=== PATIENT | male | born 1950 | race Caucasian/White ===

== ENCOUNTER 2017-10-27 13:26 | Inpatient (IN) | payer MEDICARE ==
[~2017-10-27] VITALS: Ht 182.9 cm; Wt 98.0 kg
[2017-10-27] VITALS (7 sets, daily range): BP systolic 145–207; BP diastolic 64–95; PULSE 73–94; RESP 18–25; TEMP 96.6–98.2; O2SAT 97–100
[2017-10-27] MEDS ORDERED: MICR12.5 PO (13:56)
[2017-10-27] MEDS ORDERED: ENOX120P SQ (13:56)
[2017-10-27] MEDS ORDERED: AMLO10 PO (13:56)
[2017-10-27] MEDS ORDERED: PRED20 PO (13:56)
[2017-10-27] MEDS ORDERED: PERC10TA27 PO (13:56)
--- NOTE | 2017-10-27 14:14 | PD ---
HPI Chief Complaint: Neuro Symptoms/ Deficits Time Seen by Provider: 13:39 Travel History International Travel<30 days: No Contact w/Intl Traveler<30days: No Traveled to known affect area: No History of Present Illness HPI 67-year-old man who presents to the emergency department complaining of right shoulder chest swelling ecchymosis bruising, as well as weakness, shortness of breath, concern for stroke. Patient has a history of still's disease or systemic rheumatoid arthritis as well as joints arthritis, for which she is on prednisone 40 mg daily, been on high-dose prednisone for 1 year. He has is a history of multiple ischemic strokes attributed antiphospholipid antibody syndrome. He is on Lovenox 120 mg twice a day. He apparently had an episode of spontaneous ecchymosis and hematoma in his back a month or so ago. He gets most of his care and your [place] worries from it is been in [place]. No etiology was found for that besides his Lovenox use. Today he started having spontaneous swelling and ecchymosis in his right chest wall with pain with any movement in the right arm. He's had more generalized pain to be treated to a flare of his still's disease. He also has been having several days of worsening shortness of breath and dyspnea on exertion. Although the symptoms are not similar to his previous strokes, given his history his is also worried about stroke. Bleeding History Past Medical History Narrative Medical Still's disease Multiple ischemic CVAs in the past Antiphospholipid antibody syndrome Giant cell arteritis, on high-dose steroids Hypertension Tetanus Vaccination: < 5 Years Influenza Vaccination: No Social History Alcohol Use: Yes (BEER OCCASIONALLY ) Tobacco Use: No (QUIT IN 1981) Allergies-Medications (Allergen,Severity, Reaction): Coded Allergies: No Known Allergies (Unverified , 10/27/17) Reported Meds & Prescriptions Reported Meds & Active Scripts Active Reported Percocet (Oxycodone-Acetaminophen) 10-325 mg Tab 1 Tab PO Q4H PRN Lovenox Inj (Enoxaparin Sodium) 120 Mg/0.8 Ml Syr 120 Mg SQ BID Norvasc (Amlodipine Besylate) 10 Mg Tab 10 Mg PO DAILY Microzide (Hydrochlorothiazide) 12.5 Mg Cap 12.5 Mg PO DAILY Prednisone 20 Mg Tab 40 Mg PO DAILY Take 40 mg (2 tablets) daily for 5 days Review of Systems ROS Limitations: Clinical Condition Physical Exam Narrative GENERAL: 67-year-old man, generally well-appearing, little bit confused SKIN: Focused skin assessment warm/dry. HEAD: Atraumatic. Normocephalic. EYES: Pupils equal and round. No scleral icterus. No injection or drainage. Pale conjunctiva. ENT: No nasal bleeding or discharge. Mucous membranes pink and moist. NECK: Trachea midline. No JVD. CARDIOVASCULAR: Regular rate and rhythm. No murmur appreciated. RESPIRATORY: No accessory muscle use. Clear to auscultation. Breath sounds equal bilaterally. GASTROINTESTINAL: Abdomen soft, non-tender, nondistended. Hepatic and splenic margins not palpable. MUSCULOSKELETAL: Obvious ecchymosis bruising and swelling to the right chest wall with fullness of the right pectoralis muscle, extending into the right arm some. Back exam is unremarkable. Pale conjunctiva. NEUROLOGICAL: Awake and alert. No obvious cranial nerve deficits. Patient is a little bit abnormal posture some asymmetry from the pain and swelling in the right chest. Don't see any obvious focal deficits or other suggestion of stroke. PSYCHIATRIC: Appropriate mood and affect; insight and judgment normal. Data Data Last Documented VS Vital Signs Date Time Temp Pulse Resp B/P (MAP) Pulse Ox O2 Delivery O2 Flow Rate FiO2 10/27/17 16:30 89 20 207/93 (131) 99 Room Air 10/27/17 13:45 98.2 Orders Orders Electrocardiogram (10/27/17 13:39) Complete Blood Count With Diff (10/27/17 13:39) Comprehensive Metabolic Panel (10/27/17 13:39) Prothrombin Time / Inr (Pt) (10/27/17 13:39) Act Partial Throm Time (Ptt) (10/27/17 13:39) Troponin I (10/27/17 13:39) Ct Brain W/O Iv Contrast(Rout) (10/27/17 13:39) Blood Glucose (10/27/17 13:39) Ecg Monitoring (10/27/17 13:39) Iv Access Insert/Monitor (10/27/17 13:39) Oximetry (10/27/17 13:39) Type And Screen (10/27/17 13:39) Acetamin-Hydrocod 325-5 Mg ([place] 5-325 (10/27/17 14:45) Ct Thorax/ Chest Wo Iv Contras (10/27/17 ) Admit Order (Ed Use Only) (10/27/17 ) Labs Laboratory Tests Test 10/27/17 13:55 White Blood Count 14.7 TH/MM3 Red Blood Count 2.76 MIL/MM3 Hemoglobin 8.2 GM/DL Hematocrit 24.2 % Mean Corpuscular Volume 87.6 FL Mean Corpuscular Hemoglobin 29.8 PG Mean Corpuscular Hemoglobin Concent 34.1 % Red Cell Distribution Width 15.6 % Platelet Count 178 TH/MM3 Mean Platelet Volume 7.9 FL Neutrophils (%) (Auto) 85.2 % Lymphocytes (%) (Auto) 11.1 % Monocytes (%) (Auto) 3.0 % Eosinophils (%) (Auto) 0.1 % Basophils (%) (Auto) 0.6 % Neutrophils # (Auto) 12.5 TH/MM3 Lymphocytes # (Auto) 1.6 TH/MM3 Monocytes # (Auto) 0.4 TH/MM3 Eosinophils # (Auto) 0.0 TH/MM3 Basophils # (Auto) 0.1 TH/MM3 CBC Comment AUTO DIFF Differential Total Cells Counted 100 Neutrophils % (Manual) 77 % Band Neutrophils % 7 % Lymphocytes % 8 % Monocytes % 2 % Neutrophils # (Manual) 13.2 TH/MM3 Metamyelocytes 3 % Myelocytes 3 % Differential Comment FINAL DIFF MANUAL Toxic Granulation 1+ Platelet Estimate NORMAL Platelet Morphology Comment NORMAL Prothrombin Time 13.1 SEC Prothromb Time International Ratio 1.3 RATIO Activated Partial Thromboplast Time 42.9 SEC Blood Urea Nitrogen 28 MG/DL Creatinine 2.21 MG/DL Random Glucose 244 MG/DL Total Protein 6.9 GM/DL Albumin 3.4 GM/DL Calcium Level 8.4 MG/DL Alkaline Phosphatase 119 U/L Aspartate Amino Transf (AST/SGOT) 17 U/L Alanine Aminotransferase (ALT/SGPT) 22 U/L Total Bilirubin 0.2 MG/DL Sodium Level 135 MEQ/L Potassium Level 4.2 MEQ/L Chloride Level 97 MEQ/L Carbon Dioxide Level 20.7 MEQ/L Anion Gap 17 MEQ/L Estimat Glomerular Filtration Rate 30 ML/MIN Troponin I LESS THAN 0.02 NG/ML MDM Medical Decision Making Medical Screen Exam Complete: Yes Emergency Medical Condition: Yes Interpretation(s) LABS: CBC remarkable for moderate leukocytosis, 7% bands, hemoglobin 8.2 CMP remarkable for a little bit of acidosis, BUN/creatinine 28/2.21 Troponin less than 0.[address]: Large apparent subpectoral hematoma measuring 9 x 3.7 cm. Small hypodense complement anteriorly and medially measuring 2.6 x 4.1 cm. May represent evolving blood products. No air. Since all right middle lobe nodule. Head CT: Old infarct left occipital lobe. Differential Diagnosis Spontaneous hematoma, hit, thrombocytopenia, anemia, Narrative Course Medical decision making 67-year-old man, appears have a spontaneous hematoma in his right chest. He is on 120 mg Lovenox twice daily for his thrombophilia. Is also on high-dose steroids. He looks very anemic and I think this may be the cause of his dyspnea on exertion. I don't see any stroke symptoms. What check labs, coags, CT the chest to see his size is hematoma to see if it could be the source of the bleeding or GI bleed is more likely. Likely admission. FINAL: Patient with anemia, appears to be consistent with baseline according to family. He also some renal insufficiency. He is on high doses of Lovenox, with the renal insufficiency. This could be contributing to his bleeding. His a spontaneous hematoma in the right pectoralis muscle. We'll admit for monitoring, ensure no active continued bleeding or worsening anemia. Spoke with Dr. Hyman, who will admit the patient. Diagnosis Primary Impression: Hematoma Additional Impressions: Coagulopathy Anemia Admitting Information Admitting Physician Requests: Admit Faraz Ball MD Oct 27, 2017 14:14
[2017-10-27 14:27] LABS: AUTOMATED NEUTROPHIL # 12.5 TH/MM3 (1.8-7.7); BASOPHIL # 0.1 TH/MM3 (0-0.2); BASOPHIL % 0.6 % (0.0-2.0); EOSINOPHIL % 0.1 % (0.0-4.0); HEMATOCRIT 24.2 % (39.0-51.0); HEMOGLOBIN 8.2 GM/DL (13.0-17.0); LYMPH % 11.1 % (9.0-44.0); LYMPHOCYTE # 1.6 TH/MM3 (1.0-4.8); MEAN CELL VOLUME 87.6 FL (80.0-100.0); MEAN CORPUSCULAR HEMOGLOBIN 29.8 PG (27.0-34.0); MEAN CORPUSCULAR HGB CONC 34.1 % (32.0-36.0); MEAN PLATELET VOLUME 7.9 FL (7.0-11.0); MONOCYTE # 0.4 TH/MM3 (0-0.9); NEUT % 85.2 % (16.0-70.0); PLATELET COUNT 178 TH/MM3 (150-450); RED BLOOD COUNT 2.76 MIL/MM3 (4.50-5.90); RED CELL DISTRIBUTION WIDTH 15.6 % (11.6-17.2); WHITE BLOOD COUNT 14.7 TH/MM3 (4.0-11.0)
[2017-10-27 14:34] LABS: INTERNATIONAL NORMALIZED RATIO 1.3 RATIO; PROTHROMBIN TIME - PATIENT 13.1 SEC (9.8-11.6)
[2017-10-27 14:43] LABS: ALBUMIN 3.4 GM/DL (3.4-5.0); ALT (GPT) 22 U/L (12-78); AST (GOT) 17 U/L (15-37); BICARBONATE 20.7 MEQ/L (21.0-32.0); BLOOD UREA NITROGEN 28 MG/DL (7-18); CALCIUM 8.4 MG/DL (8.5-10.1); CHLORIDE 97 MEQ/L (98-107); CREATININE 2.21 MG/DL (0.60-1.30); GLOMERULAR FILTRATION RATE 30 ML/MIN (>89); GLUCOSE,RANDOM 244 MG/DL (74-106); SODIUM (NA) 135 MEQ/L (136-145)
[2017-10-27] MEDS ORDERED: ACETAMINOPHEN/HYDROcodone 325 MG/5 MG TAB PO ONE (14:45)
[2017-10-27 14:46] LABS: ALKALINE PHOSPHATASE 119 U/L (45-117); TOTAL BILIRUBIN ADULT 0.2 MG/DL (0.2-1.0); TOTAL PROTEIN 6.9 GM/DL (6.4-8.2); TROPONIN I LESS THAN 0.02 NG/ML (0.02-0.05)
[2017-10-27 15:37] LABS: BANDS 7 % (0-6); LYMPHOCYTES 8 % (9-44); METAMYELOCYTES 3 % (0-1); MONOCYTES 2 % (0-8); MYELOCYTES 3 % (0-0); NEUTROPHIL # MANUAL DIFF 13.2 TH/MM3 (1.8-7.7); POLYS (SEG NEUTROPHILS) 77 % (16-70)
[2017-10-27 15:39] LABS: TOXIC GRANULATION 1+ (NORMAL)
--- NOTE | 2017-10-27 15:44 | RADRPT ---
EXAM DATE/TIME: 10/27/2017 15:21 [facility] COMPARISON: No previous studies available for comparison. INDICATIONS : Altered mental status. RADIATION DOSE: 56.35 CTDIvol (mGy) MEDICAL HISTORY : Cardiovascular disease. SURGICAL HISTORY : None. ENCOUNTER: Initial ACUITY: 4 - 6 days PAIN SCALE: 0/10 LOCATION: cranial TECHNIQUE: Multiple contiguous axial images were obtained of the head. Using automated exposure control and adj ustment of the mA and/or kV according to patient size, radiation dose was kept as low as reasonably a chievable to obtain optimal diagnostic quality images. DICOM format image data is available electro nically for review and comparison. FINDINGS: CEREBRUM: The ventricles are normal for age. No evidence of midline shift, mass lesion, hemorrhage or acute in farction. No extra-axial fluid collections are seen. POSTERIOR FOSSA: Brainstem intact. Encephalomalacia left occipital lobe.. The 4th ventricle is midline. The cerebell opontine angle is unremarkable. EXTRACRANIAL: The visualized portion of the orbits is intact. SKULL: The calvaria is intact. No evidence of skull fracture. CONCLUSION: 1. Old infarct left occipital lobe. 2. No acute intracranial abnormality. Moshe De Guzman MD on October 27, 2017 at 15:40 Board Certified Radiologist. This report was verified electronically.
--- NOTE | 2017-10-27 16:08 | RADRPT ---
EXAM DATE/TIME: 10/27/2017 15:25 [facility] COMPARISON: No previous studies available for comparison. INDICATIONS : Increased bruising right anterior chest. RADIATION DOSE: 18.83 CTDIvol (mGy) MEDICAL HISTORY : Cardiovascular disease. SURGICAL HISTORY : None. ENCOUNTER: Initial ACUITY: 4 - 6 days PAIN SCALE: 10/10 LOCATION: Right chest TECHNIQUE: Volumetric scanning of the chest was performed. Using automated exposure control and adjustment of t he mA and/or kV according to patient size, radiation dose was kept as low as reasonably achievable to obtain optimal diagnostic quality images. DICOM format image data is available electronically for r eview and comparison. Follow-up recommendations for detected pulmonary nodules are based at a minimum on nodule size and pa tient risk factors according to Fleischner Society Guidelines. FINDINGS: LUNGS: Mild groundglass opacities and linear parenchymal opacities in the right lung base. Minimal linear pa renchymal opacities at the left lung base. Subtle 4 mm groundglass nodule in the anterior right middl e lobe. PLEURAE: There is no pleural thickening or pleural effusion. MEDIASTINUM: Very trace pericardial effusion. Prominent coronary artery calcifications. No significant mediastinal adenopathy. CHEST WALL: Large heterogeneous probably isodense collection the pectoralis muscles. This measures 9.0 x 3.7 cm. Anteriorly and medially there is a hypodense component measuring 2.6 x 4.1 cm. There is al so prominence of the pectoralis major with associated surrounding stranding. No radiopaque foreign ranjeet dies or air in this region. MUSCULOSKELETAL: Within normal limits for patient age. MISCELLANEOUS: The visualized upper abdominal organs demonstrate no acute abnormality. CONCLUSION: 1. Large apparent subpectoral hematoma measuring 9.0 x 3.7 cm. There is a small hypodense component a nteriorly and medially measuring 2.6 x 4.1 cm. This may reflect evolving blood products. There is no air within the collection. However, superimposed infection cannot be excluded. 2. 4 mm sub-solid right middle lobe nodule. This does not require followup for 2017 Fleischner criter ia. 3. Very trace pericardial effusion. 4. Coronary artery calcifications. Femi Castillo MD on October 27, 2017 at 15:49 Board Certified Radiologist. This report was verified electronically.
[2017-10-27] MEDS ORDERED: NALOXONE HCL 0.4 MG/ML AMP IV PUSH PRN (16:45)
--- NOTE | 2017-10-27 17:42 | HHI.HP ---
HPI Service [facility] Primary Care Physician Non-Staff Admission Diagnosis hematoma, coagulopathy, anemia Diagnoses: Travel History International Travel<30 Days: No Contact w/Intl Traveler <30 Da: No Traveled to Known Affected Are: No History of Present Illness Hx from patient, ER MD, at the bedside and nursing staff from [facility] to [facility] and admitted there aug 15 admission - dc on or so [facility] that time, had back pain - hemorrhage was left retroperitoneal- no surgery had bacteremia with Staph dc on picc line was on antibiotics at home- finished 3 weeks ago - 3x a day dose, cefepime had another cx since then- but no results now still have increased abdominal pain and right shoulder pain and swelling and echymosis the pain now is also at front of the left lower quadrant, and not just left flank since , winded, slurred, cant even walk to bathroom limted rom on right arm was told to go to [place] but human resource advisor there told him to go to nearest trauma center 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 Review of Systems Except as stated in HPI: all other systems reviewed are Neg Past Family Social History Past Medical History htn DVT LLE- 2002- was treated with coumadin then on lovenox since Jun 2017 Pulmonary Embolism 2002 Antiphospholipid antibody CVA - no residual - apart from mild left eye visual problem and some left foot dragging at times Still disease - in remission - but getting worse with flare up now Temporal Arteritis Bacteremia in Aug 2017-Sep 2017 admission with Staph MSSA- likely from left elbow cyst infection that was drained at urgent care PUD Past Surgical History tonsilectomy appendectomy left rotator repair right roator and deltod abdominal hjernia riht meiscus cataratct both endosocpy and colonsocpy temrparal biospy abscess at left elbow right shoulder arthrocentesis Allergies: Coded Allergies: No Known Allergies (Unverified , 10/27/17) Family History father- cva brother - fibromyalgia Social History quit smoking 1981 no etoh no drugs has not been driving since jul 2017 Physical Exam Vital Signs Vital Signs Date Time Temp Pulse Resp B/P (MAP) Pulse Ox O2 Delivery O2 Flow Rate FiO2 10/27/17 17:30 80 20 170/78 (108) 98 Room Air 10/27/17 16:30 89 20 207/93 (131) 99 Room Air 10/27/17 15:56 20 10/27/17 13:45 97 Room Air 10/27/17 13:45 98.2 93 25 180/77 (111) 97 Room Air 10/27/17 13:45 90 25 98 Room Air 10/27/17 13:27 98.2 94 18 180/77 (111) 97 Physical Exam GENERAL: This is a well-nourished, well-developed patient, in moderate distress from pain SKIN: right upper chest echymosis all around deltoid HEAD: Atraumatic. Normocephalic. No temporal or scalp tenderness. EYES: No scleral icterus. No injection or drainage. ENT: Nose without bleeding, purulent drainage or septal hematoma. Airway patent. NECK: Trachea midline. No JVDSupple, nontender, no meningeal signs. CARDIOVASCULAR: Regular rate and rhythm without murmurs, gallops, or rubs. RESPIRATORY: Clear to auscultation. Breath sounds equal bilaterally. No wheezes , rales, or rhonchi. GASTROINTESTINAL: Abdomen soft although distended,. Pain at left side of the abdomen mostly at the upper quadrant. No guarding. Left flank pain MUSCULOSKELETAL: Extremities without clubbing, cyanosis, or edema. No calf tenderness. NEUROLOGICAL: Awake and alert. Motor and sensory grossly within normal limits.. Normal speech. Laboratory Laboratory Tests Test 10/27/17 13:55 White Blood Count 14.7 Red Blood Count 2.76 Hemoglobin 8.2 Hematocrit 24.2 Mean Corpuscular Volume 87.6 Mean Corpuscular Hemoglobin 29.8 Mean Corpuscular Hemoglobin Concent 34.1 Red Cell Distribution Width 15.6 Platelet Count 178 Mean Platelet Volume 7.9 Neutrophils (%) (Auto) 85.2 Lymphocytes (%) (Auto) 11.1 Monocytes (%) (Auto) 3.0 Eosinophils (%) (Auto) 0.1 Basophils (%) (Auto) 0.6 Neutrophils # (Auto) 12.5 Lymphocytes # (Auto) 1.6 Monocytes # (Auto) 0.4 Eosinophils # (Auto) 0.0 Basophils # (Auto) 0.1 CBC Comment AUTO DIFF Differential Total Cells Counted 100 Neutrophils % (Manual) 77 Band Neutrophils % 7 Lymphocytes % 8 Monocytes % 2 Neutrophils # (Manual) 13.2 Metamyelocytes 3 Myelocytes 3 Differential Comment FINAL DIFF MANUAL Toxic Granulation 1+ Platelet Estimate NORMAL Platelet Morphology Comment NORMAL Prothrombin Time 13.1 Prothromb Time International Ratio 1.3 Activated Partial Thromboplast Time 42.9 Blood Urea Nitrogen 28 Creatinine 2.21 Random Glucose 244 Total Protein 6.9 Albumin 3.4 Calcium Level 8.4 Alkaline Phosphatase 119 Aspartate Amino Transf (AST/SGOT) 17 Alanine Aminotransferase (ALT/SGPT) 22 Total Bilirubin 0.2 Sodium Level 135 Potassium Level 4.2 Chloride Level 97 Carbon Dioxide Level 20.7 Anion Gap 17 Estimat Glomerular Filtration Rate 30 Troponin I LESS THAN 0.02 Result Diagram: 10/27/17 1355 10/27/17 1355 Imaging Last [address] 10/27/17 1339 Signed Impressions: Service Date/Time: Friday, October 27, 2017 15:21 - CONCLUSION: 1. Old infarct left occipital lobe. 2. No acute intracranial abnormality. Moshe De Guzman MD Chest CT 10/27/17 0000 Signed Impressions: Service Date/Time: Friday, October 27, 2017 15:25 - CONCLUSION: 1. Large apparent subpectoral hematoma measuring 9.0 x 3.7 cm. There is a small hypodense component anteriorly and medially measuring 2.6 x 4.1 cm. This may reflect evolving blood products. There is no air within the collection. However, superimposed infection cannot be excluded. 2. 4 mm sub-solid right middle lobe nodule. This does not require followup for 2017 Fleischner criteria. 3. Very trace pericardial effusion. 4. Coronary artery calcifications. Femi Castillo MD Caprini VTE Risk Assessment Caprini VTE Risk Assessment: Mod/High Risk (score >= 2) Caprini Risk Assessment Model Point Value = 1 Point Value = 2 Point Value = 3 Point Value = 5 Age 41-60 Minor surgery BMI > 25 kg/m2 Swollen legs Varicose veins or History of unexplained or recurrent spontaneous Oral contraceptives or hormone replacement Sepsis (< 1 month) Serious lung disease, including pneumonia (< 1 month) Abnormal pulmonary function Acute myocardial infarction Congestive heart failure (< 1 month) History of inflammatory bowel disease Medical patient at bed rest Age 61-74 Arthroscopic surgery Major open surgery (> 45 min) Laparoscopic surgery (> 45 min) Malignancy Confined to bed (> 72 hours) Immobilizing plaster cast Central venous access Age >= 75 History of VTE Family history of VTE Factor V Leiden Prothrombin [id number] Lupus anticoagulant Anticardiolipin antibodies Elevated serum homocysteine Heparin-induced thrombocytopenia Other congenital or acquired thrombophilia Stroke (< 1 month) Elective arthroplasty Hip, pelvis, or leg fracture Acute spinal cord injury (< 1 month) Prophylaxis Regimen Total Risk Factor Score Risk Level Prophylaxis Regimen 0-1 Low Early ambulation 2 Moderate Order ONE of the following: *Sequential Compression Device (SCD) *Heparin 5000 units SQ BID 3-4 Higher Order ONE of the following medications: *Heparin 5000 units SQ TID *Enoxaparin/Lovenox 40 mg SQ daily (WT < 150 kg, CrCl > 30 mL/min) *Enoxaparin/Lovenox 30 mg SQ daily (WT < 150 kg, CrCl > 10-29 mL/min) *Enoxaparin/Lovenox 30 mg SQ BID (WT < 150 kg, CrCl > 30 mL/min) AND/OR *Sequential Compression Device (SCD) 5 or more Highest Order ONE of the following medications: *Heparin 5000 units SQ TID (Preferred with Epidurals) *Enoxaparin/Lovenox 40 mg SQ daily (WT < 150 kg, CrCl > 30 mL/min) *Enoxaparin/Lovenox 30 mg SQ daily (WT < 150 kg, CrCl > 10-29 mL/min) *Enoxaparin/Lovenox 30 mg SQ BID (WT < 150 kg, CrCl > 30 mL/min) AND *Sequential Compression Device (SCD) Assessment and Plan Assessment and Plan Impression: Large right chest hematoma Possible intra-abdominal/retroperitoneal hematoma from history and physical exam Symptomatic anemia. Secondary to acute blood loss anemia Intractable pain secondary to enlarging hematoma Leukocytosis with left shift. In a patient who had recent sepsis with MSSA bacteremia. Acute renal failure htn DVT LLE- 2002- was treated with coumadin then on lovenox since Jun 2017 Pulmonary Embolism 2002 Antiphospholipid antibody CVA - no residual - apart from mild left eye visual problem and some left foot dragging at times Still disease - in remission - but getting worse with flare up now Temporal Arteritis Bacteremia in Aug 2017-Sep 2017 admission with Staph MSSA- likely from left elbow cyst infection that was drained at urgent care PUD Plan: CT abdomen and pelvis without contrast to evaluate for hematoma. Transfuse 2 units of PRBC now. Hold 2 units. Patient is symptomatic with dizziness, inability to ambulate due to shortness of breath/dizziness. General surgery consult. Hemoglobin hematocrit serially. Pain control with Dilaudid 1 mg IV every 4 hours when necessary for pain greater than 5. Patient would likely need higher dose if not controlled. Since patient has mild leukocytosis with left shift and bandemia, although he did not have a fever, and since he had prior history of bacteremia recently, I would cover him with antibiotics. Blood cultures 2 now. UA and urine culture. Vancomycin per creatinine clearance and levels. Zosyn 4.5 g IV every 6 hours. To adjust with creatinine clearance. CT chest personally reviewed. Hydrate patient with normal saline at 100 cc per hour and blood transfusion. Patient's stated that patient's occasional he gets acute renal failure secondary to dehydration and bleeding. However his renal functions always goes back to normal and was evaluated by superintendent quarry previously for this. Hematology evaluation for high risk of clot formation in this patient who we cannot anticoagulate at this point. Question whether patient could be an IVC filter candidate. DVT prophylaxis with SCD at present. GI prophylaxis with ranitidine. Change to inpatient full admit Discussed Condition With Patient, at the bedside, ER physician Michelle Lozoya MD Oct 27, 2017 17:42
[2017-10-27] MEDS: SODIUM CHLOR 0.9% 1000 ML INJ 1,000 ML IV SCH (19:32)
[2017-10-27] MEDS: HYDROmorphone HCL PF 2 MG/ML VIAL IV PUSH PRN (19:34)
[2017-10-27] MEDS ORDERED: PIPERACIL-TAZO 4.5 GM PREMIX 100 ML IV SCH (20:00)
[2017-10-27] MEDS ORDERED: Vancomycin Consult Pharmacy 1 EA OTHER SCH (20:00)
[2017-10-27] MEDS ORDERED: cloNIDine HCL 0.1 MG TAB PO ONE (20:00)
[2017-10-27] MEDS ORDERED: ZOLP10TA3 PO (20:07)
--- NOTE | 2017-10-27 20:10 | RADRPT ---
EXAM DATE/TIME: 10/27/2017 19:35 [facility] COMPARISON: No previous studies available for comparison. INDICATIONS : Retroperitoneal/intraperitoneal hematoma ORAL CONTRAST: No oral contrast ingested. RADIATION DOSE: 12.82 CTDIvol (mGy) MEDICAL HISTORY : Cerebrovascular disease. Hypertension. SURGICAL HISTORY : Appendectomy. Hernia repair ENCOUNTER: Initial ACUITY: 1 day PAIN SCALE: 9/10 LOCATION: abdomen TECHNIQUE: Volumetric scanning of the abdomen and pelvis was performed. Using automated exposure control and ad justment of the mA and/or kV according to patient size, radiation dose was kept as low as reasonably achievable to obtain optimal diagnostic quality images. DICOM format image data is available electro nically for review and comparison. FINDINGS: Minimal basilar atelectasis. No acute findings in the liver, spleen, adrenals, kidneys or pancreas. N o calcified gallstones. There is mild constipation. Previous ventral hernia repair. Colonic diverticulosis without diverticul itis. No acute bony abnormalities. There is no retroperitoneal hematoma or free fluid. CONCLUSION: 1. Negative for free fluid or retroperitoneal hemorrhage. 2. Previous hernia repair. No acute findings within the abdomen or pelvis. Mild constipation. Boby Majano MD on October 27, 2017 at 20:06 Board Certified Radiologist. This report was verified electronically.
[2017-10-27] MEDS: SODIUM CHLORIDE 0.9% FLUSH 10 ML FLUSH IV FLUSH SCH (21:00)
[2017-10-27] MEDS ORDERED: VANCOMYCIN INJ 2,000 MG in SODIUM CHLORID 0.9% 500 ML INJ 500 ML IV ONE (21:00)
[2017-10-27 21:04] LABS: HEMATOCRIT 22.3 % (39.0-51.0); HEMOGLOBIN 7.6 GM/DL (13.0-17.0)
[2017-10-27] MEDS: FAMOTIDINE 20 MG TAB PO SCH (22:04)
[2017-10-27] MEDS: PIPERACILLIN/TAZ 3.375 GM VIAL 3.375 GM in SODIUM CHLORIDE 0.9% INJ 50 ML IV SCH (22:04)
--- NOTE | 2017-10-27 22:23 | MB ---
cc: ARIK CRAIG MD, TWETHIDA MD DATE OF CONSULTATION: 10/27/2017 REASON FOR CONSULTATION: Hematoma. BRIEF HISTORY This is a very pleasant unfortunate 67-year-old gentleman who resides in [place]. 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 He has antiphospholipid blood clotting disorder which has resulted in his strokes and he needs to be on anticoagulant medications. The patient had been hospitalized in [facility] in [place], due to a staph infection, though related to an infected cyst on the left elbow that underwent an I&D. He got bacteremic and septic and was treated with antibiotics long-term and a PICC line. The patient had been on Coumadin for DVT and pulmonary embolus in the past but was switched to Eliquis. He got a retroperitoneal hematoma on Eliquis and then was switched to subcutaneous Lovenox. He was leaving [place] to go up to [facility] where he has family and better medical care than in the [place] when he developed bruising, swelling, pain in the right chest wall, right shoulder. His called his slip injector and applicator who told he should go to the nearest trauma center which ended up being [place]. He was found to be anemic. He had CT scan which shows a large intra-pectoral hematoma and he has ecchymosis across the right chest and right upper extremity. He also complains of abdominal pain. He is long-term, been on multiple narcotic medications including Dilaudid, OxyContin and Percocet. He is now weaned down to Percocet only. He has been on multiple laxative medications and has had constipation in the past but has had bowel movements over the last five days. He has had a large ecchymotic area on the left side of the back but that is resolving. ALLERGIES: NO KNOWN DRUG ALLERGIES. PAST MEDICAL HISTORY: Significant for Still's disease, multiple ischemic strokes, anti-phospholipid antibody syndrome. He has had temporal arteritis. Hypertension. ROUTINE MEDICATIONS 1. Percocet. 2. Lovenox. 3. Norvasc. 4. Microzide. 5. Prednisone. SOCIAL HISTORY: He is a resident of [place]. I do not believe there is any significant tobacco or alcohol abuse history that is significant. PHYSICAL EXAMINATION: Well-developed, well-nourished, kind, man in no acute distress, pleasant, cooperative with exam, accompanied by his . VITAL SIGNS: Temperature 96.6, pulse 94, respiratory rate 20, blood pressure 204/95, O2 sat 99%. HEENT: Normocephalic, atraumatic. Pupils are equal, round and reactive to light. His sclerae is anicteric. His oropharynx is clear. He has got a small two tooth bridge. Mucous membranes are moist. NECK: Midline trachea, jugular venous distention. LUNGS: Lung sounds are clear. HEART: Heart sounds are regular without obvious murmurs, rubs, or gallops. He has a large ecchymotic swollen area right chest, pectoralis with ecchymosis extending into the upper right upper extremity. He has a soft, mildly protuberant abdomen that has mild tenderness to palpation. No rebound or guarding. He has two small incisional scars from hernia repair I believe at the umbilicus. /RECTAL: Not repeated. EXTREMITIES: Right upper extremity ecchymosis and some mild swelling. He has equal radial pulses. His lower extremities appear normal. No clubbing, cyanosis or edema. NEUROLOGIC: Awake, alert, oriented. He is reluctant to move the right arm due to pain. LABORATORY DATA: White count 14.7, hemoglobin 8.2, platelet count of 178, 77% neutrophils, 7% bands. INR 1.3, PTT 42.9, potassium 42. BUN 28, creatinine 2.21, albumin 3.4, negative troponin. CT of the brain shows old infarct, left occipital lobe. No acute intracranial abnormality. CT of the chest shows large subpectoral hematoma. A 4 millimeter right middle lobe nodule, trace pericardial effusion and coronary artery calcifications. CT abdomen and pelvis does not show any residual retroperitoneal hematoma. No acute intraperitoneal abnormalities evidence of prior ventral hernia repair, subcutaneous ecchymotic change in the lower chest wall, distended gallbladder without acute inflammatory changes, colon with stool and air. The bladder appears normal. Prostate appears normal. Small bilateral spermatic cord lipomas, no acute inflammatory process. No evidence of intra-abdominal or retroperitoneal bleed. Official reading pending. ASSESSMENT: The patient is a 67 year-old gentleman from [place], on his way to [place] area to see his regular physicians who has Still's disease, anti-phospholipid antibody disorder, history of DVT and pulmonary embolus, history of retroperitoneal hematoma with now with now intra-pectoral hematoma, on subcutaneous Lovenox. A very complicated patient who at this time does not require any surgical intervention. I reviewed the films on the computer with the patient's . I have recommended against any surgical intervention. The patient is going to need hematology evaluation to try and fine tune his anticoagulant therapy. Expectations for resolution of the hematoma in the chest wall over the next 2-3 months. Unless the patient became so painful he could not stand it, ought to avoid any intervention that may introduce skin bacteria to his hematoma. MD ERMA Pro/OK /8:33 PM /9:52 PM
[2017-10-28] VITALS (11 sets, daily range): BP systolic 115–190; BP diastolic 57–89; PULSE 69–98; RESP 16–20; TEMP 97.8–98.9; O2SAT 96–100
[2017-10-28] MEDS: ACETAMINOPHEN/HYDROcodone 325 MG/5 MG TAB PO PRN (00:58)
[2017-10-28] MEDS: ZOLPIDEM TARTRATE 10 MG TAB PO PRN (00:59)
[2017-10-28] MEDS: PIPERACILLIN/TAZ 3.375 GM VIAL 3.375 GM in SODIUM CHLORIDE 0.9% INJ 50 ML IV SCH ×4 (03:07→21:00)
[2017-10-28] MEDS: HYDROmorphone HCL PF 2 MG/ML VIAL IV PUSH PRN ×3 (06:37→19:09)
[2017-10-28] MEDS ORDERED: cloNIDine HCL 0.1 MG TAB PO ONE (06:45)
[2017-10-28 07:13] LABS: AUTOMATED NEUTROPHIL # 10.3 TH/MM3 (1.8-7.7); BASOPHIL # 0.1 TH/MM3 (0-0.2); BASOPHIL % 0.4 % (0.0-2.0); EOSINOPHIL % 0.2 % (0.0-4.0); HEMATOCRIT 27.6 % (39.0-51.0); HEMOGLOBIN 9.7 GM/DL (13.0-17.0); LYMPH % 20.6 % (9.0-44.0); MEAN CELL VOLUME 84.3 FL (80.0-100.0); MEAN CORPUSCULAR HEMOGLOBIN 29.7 PG (27.0-34.0); MEAN CORPUSCULAR HGB CONC 35.2 % (32.0-36.0); MEAN PLATELET VOLUME 7.7 FL (7.0-11.0); MONO % 6.8 % (0.0-8.0); PLATELET COUNT 133 TH/MM3 (150-450); RED BLOOD COUNT 3.28 MIL/MM3 (4.50-5.90); RED CELL DISTRIBUTION WIDTH 14.7 % (11.6-17.2); WHITE BLOOD COUNT 14.4 TH/MM3 (4.0-11.0)
[2017-10-28 07:36] LABS: BILIRUBIN, URINE NEG (NEG); BLOOD, URINE SMALL (NEG); GLUCOSE,URINE NEG (NEG); KETONE, URINE NEG (NEG); MUCUS URINE FEW /lpf (OCC); NITRITE,URINE NEG (NEG); URINE COLOR LIGHT-YELLOW (YELLW/STRAW); URINE LEUKOCYTE ESTERASE NEG (NEG)
[2017-10-28 08:04] LABS: CALCIUM 8.3 MG/DL (8.5-10.1); CREATININE 1.53 MG/DL (0.60-1.30)
[2017-10-28] MEDS ORDERED: POTASSIUM CHLORIDE 20 MEQ CONTROLLED RELEASE TAB PO ONE (09:00)
[2017-10-28] MEDS: FAMOTIDINE 20 MG TAB PO SCH (09:43)
[2017-10-28] MEDS: SODIUM CHLORIDE 0.9% FLUSH 10 ML FLUSH IV FLUSH SCH (09:43)
[2017-10-28] MEDS: HYDROCHLOROTHIAZIDE 12.5 MG CAP PO SCH (09:44)
[2017-10-28] MEDS: predniSONE 20 MG TAB PO SCH (09:44)
[2017-10-28] MEDS: SODIUM CHLOR 0.9% 1000 ML INJ 1,000 ML IV SCH (09:45)
[2017-10-28 10:02] LABS: BANDS 11 % (0-6); BASOPHILS 1 % (0-2); CORRECTED NUCLEATED RBC 1 /100 WBC (0-0); LYMPHOCYTES 12 % (9-44); METAMYELOCYTES 5 % (0-1); MONOCYTES 5 % (0-8); MYELOCYTES 3 % (0-0); NEUTROPHIL # MANUAL DIFF 11.7 TH/MM3 (1.8-7.7); NUCLEATED RED BLOOD CELL 1 (0-0); POLYS (SEG NEUTROPHILS) 62 % (16-70)
[2017-10-28 10:05] LABS: TOXIC GRANULATION 2+ (NORMAL)
--- NOTE | 2017-10-28 10:25 | RADRPT ---
EXAM DATE/TIME: 10/28/2017 09:24 [facility] COMPARISON: No previous studies available for comparison. INDICATIONS : Bilateral leg swelling. MEDICAL HISTORY : Hypertension. Rheumatoid arthritis. Arthritis. Right chest hematoma. CVA. Antiphospholipid disorder. Temporal arteritis. Anti coagulant therapy, Lovenox SURGICAL HISTORY : Tonsillectomy.Appendectomy. Cataracts. Hernia repair. Bilateral rotator cuff repairs. Blood transfusi ons. ENCOUNTER: Initial ACUITY: 1 day PAIN SCORE: 0/10 LOCATION: Bilateral leg. TECHNIQUE: Venous ultrasound of the left and right leg was performed from the inguinal ligament to the proximal calf. Real-time, color Doppler and spectral tracing, compression and augmentation techniques were us ed. FINDINGS: RIGHT LEG: There is normal compressibility of the deep venous system from the inguinal region to the proximal ca lf. No echogenic clot is seen in the lumen of the common femoral, femoral, popliteal, and posterior tibial veins. There is a normal response of the venous system to proximal and distal augmentation an d respiration. LEFT LEG: There is normal compressibility of the deep venous system from the inguinal region to the proximal ca lf. No echogenic clot is seen in the lumen of the common femoral, femoral, popliteal, and posterior tibial veins. There is a normal response of the venous system to proximal and distal augmentation an d respiration. CONCLUSION: Normal examination. Jayesh Cole Jr., MD on October 28, 2017 at 10:18 Board Certified Radiologist. This report was verified electronically.
[2017-10-28] MEDS: ENOXAPARIN SODIUM 60 MG/0.6 ML SYRINGE SQ SCH ×2 (11:12→23:20)
--- NOTE | 2017-10-28 11:20 | HHI.PR ---
Subjective Remarks Follow-up chest wall hematoma. Improving pain. Patient and agree with restarting anticoagulation at a lower dose. No other new complaints. Chronic intermittent chills. Objective Vitals Vital Signs Date Time Temp Pulse Resp B/P (MAP) Pulse Ox O2 Delivery O2 Flow Rate FiO2 10/28/17 08:24 98.4 69 18 115/57 (76) 99 10/28/17 07:23 18 10/28/17 05:55 98.6 98 18 190/89 98 10/28/17 04:27 97.8 77 18 162/77 (105) 96 10/28/17 04:15 98.9 78 18 149/84 100 10/28/17 04:04 98.8 18 148/76 100 10/28/17 03:05 18 10/28/17 03:05 98.8 82 18 142/86 100 10/27/17 23:21 96.7 74 20 145/64 (91) 97 10/27/17 23:04 98.2 73 18 152/82 100 10/27/17 19:24 96.6 94 20 204/95 (131) 99 10/27/17 17:30 80 20 170/78 (108) 98 Room Air 10/27/17 16:30 89 20 207/93 (131) 99 Room Air 10/27/17 15:56 20 10/27/17 13:45 97 Room Air 10/27/17 13:45 98.2 93 25 180/77 (111) 97 Room Air 10/27/17 13:45 90 25 98 Room Air 10/27/17 13:27 98.2 94 18 180/77 (111) 97 I/O 10/27/17 10/27/17 10/27/17 10/28/17 10/28/17 10/28/17 07:00 15:00 23:00 07:00 15:00 23:00 Intake Total 333 ml 3400 ml 900 ml Output Total 300 ml Balance 333 ml 3100 ml 900 ml Intake Oral 500 ml IV Total 800 ml 100 ml Packed Cells 800 ml 400 ml Blood Product IV Normal Saline Flush 333 ml 800 ml 400 ml Other 500 ml Output Urine Total 300 ml Result Diagram: 10/28/17 0635 10/28/17 0635 Imaging Last Impressions Lower Extremity Ultrasound 10/28/17 0000 Signed Impressions: Service Date/Time: October 09:24 - CONCLUSION: Normal examination. Jayesh Cole Jr., MD Abdomen/Pelvis CT 10/27/17 1922 Signed Impressions: Service Date/Time: Friday, October 27, 2017 19:35 - CONCLUSION: 1. Negative for free fluid or retroperitoneal hemorrhage. 2. Previous hernia repair. No acute findings within the abdomen or pelvis. Mild constipation. Boby Majano MD Head CT 10/27/17 1339 Signed Impressions: Service Date/Time: Friday, October 27, 2017 15:21 - CONCLUSION: 1. Old infarct left occipital lobe. 2. No acute intracranial abnormality. Moshe De Guzman MD Chest CT 10/27/17 0000 Signed Impressions: Service Date/Time: Friday, October 27, 2017 15:25 - CONCLUSION: 1. Large apparent subpectoral hematoma measuring 9.0 x 3.7 cm. There is a small hypodense component anteriorly and medially measuring 2.6 x 4.1 cm. This may reflect evolving blood products. There is no air within the collection. However, superimposed infection cannot be excluded. 2. 4 mm sub-solid right middle lobe nodule. This does not require followup for 2017 Fleischner criteria. 3. Very trace pericardial effusion. 4. Coronary artery calcifications. Femi Castillo MD Objective Remarks GENERAL: This is a well-nourished, well-developed patient, in no distress SKIN: right upper chest ecchymosis all around deltoid CARDIOVASCULAR: Regular rate and rhythm without murmurs, gallops, or rubs. RESPIRATORY: Clear to auscultation. Breath sounds equal bilaterally. No wheezes , rales, or rhonchi. GASTROINTESTINAL: Abdomen soft although distended,. No guarding. MUSCULOSKELETAL: Extremities without clubbing, cyanosis, or edema. No calf tenderness. NEUROLOGICAL: Awake and alert. Motor and sensory grossly within normal limits. Normal speech. Procedures none A/P Problem List: (1) Hematoma ICD Code: T14.8XXA - Other injury of unspecified body region, initial encounter Status: Acute (2) Coagulopathy ICD Code: D68.9 - Coagulation defect, unspecified Status: Acute Assessment and Plan Large right chest hematoma from anticoagulation. Hemodynamically stable. Status post surgery evaluation no intervention at this time. Pain management with Lortab and IV Dilaudid counseled regarding narcotics Symptomatic anemia. Secondary to acute blood loss anemia. Improved with packed RBC transfusion Leukocytosis with left shift. In a patient who had recent sepsis with MSSA bacteremia. Continue IV vancomycin and Zosyn and follow-up blood cultures. If cultures negative we'll discontinue IV vancomycin and Zosyn. Patient on steroids likely reason for leukocytosis. Patient does not have any signs and symptoms of infection exam for chronic intermittent chills Acute kidney injury. Nonoliguric. Urinalysis unremarkable. Improving on IV hydration. Avoid nephrotoxins Abdominal pain. Abdominal CT negative. This is likely secondary to constipation. Start bowel regimen htn. Improved continue home medication Hypercoagulable state with history of DVT LLE- 2002- was treated with coumadin then on lovenox since Jun 2017, Pulmonary Embolism 2002, Antiphospholipid antibody and multiple CVA - no residual - apart from mild left eye visual problem and some left foot dragging at times. Anticoagulation per hematology Still disease - in remission - but getting worse with flare up now and Temporal Arteritis. Continue prednisone PUD on Zantac Discharge Planning Discharge when cleared by hematology Ez Parada MD Oct 28, 2017 11:20
[2017-10-28] MEDS ORDERED: SENNOSIDES 8.6 MG TAB PO PRN (15:15)
[2017-10-28] MEDS ORDERED: BISACODYL 10 MG SUPP RECTAL PRN (15:15)
[2017-10-28 17:04] LABS: HEMATOCRIT 24.7 % (39.0-51.0); HEMOGLOBIN 8.6 GM/DL (13.0-17.0)
[2017-10-28] MEDS ORDERED: VANCOMYCIN INJ 2,000 MG in SODIUM CHLOR 0.9% 250 ML INJ 250 ML IV SCH (21:00)
[2017-10-28] MEDS ORDERED: VANCOMYCIN INJ 2,000 MG in SODIUM CHLORID 0.9% 500 ML INJ 500 ML IV SCH (21:00)
[2017-10-28] MEDS: PIPERACIL-TAZO 3.375 GM PREMIX 50 ML IV SCH (23:20)
[2017-10-28] MEDS: DOCUSATE SODIUM 50 MG/SENNA 8.6 MG TAB PO SCH (23:20)
[2017-10-29] VITALS (11 sets, daily range): BP systolic 125–236; BP diastolic 58–111; PULSE 73–95; RESP 16–18; TEMP 96.5–99.3; O2SAT 96–99
--- NOTE | 2017-10-29 00:01 | EKG ---
Date Performed: 10/27/2017 Time Performed: 13:33:47 PTAGE: 67 years EKG: Sinus rhythm WITH OCCASIONAL SUPRAVENTRICULAR PREMATURE COMPLEXES NONSPECIFIC ST & T-WAVE ABNORMALITY ABNORMAL EC G PREVIOUS TRACING : 10/27/2017 13.18 DOCTOR: Rene Avila Interpretating Date/Time 10/28/2017 23:59:53
[2017-10-29] MEDS: ZOLPIDEM TARTRATE 10 MG TAB PO PRN ×2 (00:51→21:19)
[2017-10-29] MEDS: SODIUM CHLOR 0.9% 1000 ML INJ 1,000 ML IV SCH ×4 (00:52→20:27)
[2017-10-29] MEDS: SODIUM CHLORIDE 0.9% FLUSH 10 ML FLUSH IV FLUSH SCH ×3 (00:52→20:27)
[2017-10-29] MEDS: ACETAMINOPHEN/HYDROcodone 325 MG/5 MG TAB PO PRN ×5 (00:52→23:43)
--- NOTE | 2017-10-29 07:11 | MB ---
cc: BILLY BERMUDEZ M.D. DATE OF CONSULTATION October 28, [address] Lozoya REASON FOR CONSULTATION Hematology is consulted to render opinion regarding a patient with antiphospholipid antibody syndrome, admitted with a hematoma. HISTORY OF PRESENT ILLNESS The patient is very pleasant 67-year-old male admitted to the hospital because of right shoulder swelling and pain. He was found to have a large hematoma. He has a very complicated medical history. History is obtained from his at the bedside. The patient was first diagnosed with left lower extremity deep venous thrombosis in 2002. At that time he also had pulmonary embolism. He was started on Coumadin. He later was found to have antiphospholipid antibody syndrome. He was doing well but in early 2016 he had multiple strokes and TIA. His stated he had a total of about eight strokes. At that time he was taking Coumadin and reportedly therapeutic. He was then switched to Eliquis. Unfortunately, in June 2017 he had another stroke while on Eliquis. He was then switched over to Lovenox 120 mg subcutaneous injection twice a day. Around August he developed significant abdominal pain. He eventually had to be transferred from [place] to [facility] in [place]. At that time he was found to have a spontaneous retroperitoneal hematoma. According to his , the patient was maintained on Lovenox because of his history of multiple strokes. He recovered from that episode. He also had a Staph infection which possibly was caused by his left elbow infected cyst. He completed antibiotic last Wednesday. He went to see his Infectious Disease doctor in [place]. Due to his complicated history and all his family is in [place], he was advised to go back to [place]. The patient's stated that the patient started having right shoulder tenderness. By Wednesday she started seeing purplish bruise on his right shoulder. They decided to leave and head up to [place] that night. When they got to the [facility] he started having more tenderness and increased warmth on the right shoulder. They called his teacher dramatics in [place] and were told to go to the nearest trauma center and he presented to the emergency room. CT scan showed a large hematoma in the subpectoral area. The patient was admitted. His anticoagulation was stopped. His last Lovenox injection was on the morning of October 27. When I saw him he just had pain medicine, is a little sleepy, but pain is better according to his . The right shoulder hematoma seems to have improved and is not as tender and hard. The patient denies any headache. He denies any visual changes. He has no speech impairment. He did lose some peripheral eyesight after his stroke in June. He denies any lower extremity edema or tenderness. PAST MEDICAL HISTORY 1. Antiphospholipid antibody syndrome. 2. Deep venous thrombosis and pulmonary embolism in 2002. 3. Multiple strokes in 2016. 4. Rheumatoid arthritis. 5. Still's disease. 6. Hypertension. 7. Temporal arteritis. 8. Bacteremia with Staph infection August 2017. 9. Peptic ulcer disease. PAST SURGICAL HISTORY 1. I&D of left elbow January 2017. 2. Tonsillectomy. 3. Appendectomy. 4. Rotator cuff surgery on the right. 5. Abdominal hernia repair. 6. Cataract surgery. 7. Colonoscopy and EGD. 8. Temporal artery biopsy. SOCIAL HISTORY Quit tobacco in 1981. Denies alcohol use. FAMILY HISTORY Father had stroke. Brother had fibromyalgia. No thromboembolic event in the family. ALLERGIES No known drug allergies. CURRENT MEDICATIONS 1. Vancomycin. 2. Mckenna-Colace. 3. Amlodipine. 4. Hydrochlorothiazide. 5. Prednisone. 6. Zosyn. 7. Famotidine. REVIEW OF SYSTEMS CONSTITUTIONAL: Negative. EYES: Negative. ENT: Negative. CARDIOVASCULAR: Denies any chest pressure, palpitations. RESPIRATORY: No shortness of breath or cough. GI: Denies any nausea, vomiting, diarrhea or abdominal pain. : Denies dysuria, hematuria. MUSCULOSKELETAL: As above. HEMATOLOGY: As above. ENDOCRINE: Negative. DERMATOLOGY: As above. NEUROLOGIC: Negative. DERMATOLOGIC: Negative. PSYCHIATRIC: Negative. PHYSICAL EXAMINATION VITALS: Temperature 98.2, blood pressure 26/59, O2 saturation 96% room air. GENERAL: He is a little sleepy after pain medication. He otherwise is oriented. HEENT: Atraumatic, normocephalic. Pupils equal, round and reactive to light. Extraocular muscles intact. No scleral icterus. Oropharynx - dry mucosa. No lesion, no thrush. NECK: No thyromegaly. No palpable mass. LYMPHATICS: No palpable cervical, clavicular, axillary or inguinal lymph nodes. CARDIOVASCULAR: Regular S1, S2. No murmur. LUNGS: Clear to auscultation anteriorly. ABDOMEN: Soft, nontender. I could not palpate the liver or spleen. EXTREMITY EXAM: No cyanosis, clubbing or edema of lower extremities. BACK: No paravertebral tenderness. SKIN: He has ecchymosis on the right shoulder, axillary and extended upper arm. LABORATORY DATA WBC of 14.4, hemoglobin 9.7, platelet count 133. Creatinine 1.53. Liver transaminase within normal limits. ASSESSMENT 1. Right chest pectoral hematoma which developed spontaneously. The patient is on Lovenox 120 mg subcu twice a day since June of 2017. He started noticing right shoulder pain on Wednesday night. It is progressively getting worse. When he presented to the emergency room, CT of the chest showed a 9 x 3.7 cm hematoma in the subpectoral area. There was also a small hypodense component anteriorly and medially that measured 2.6 x 4.1 cm. He also has a history of retroperitoneal hematoma back around August of 2017 while he was on Lovenox. At that time he was maintained on Lovenox and he did well. The patient has history of catastrophic anti-phospholipid antibody syndrome. He had a history of the lower extremity edema and pulmonary embolism in 2002 and was started on Coumadin. In November of 2016 he had a stroke and was switched to Eliquis and in June 2017 he had another stroke and was switched to Lovenox. His Lovenox was stopped when he presented to the hospital. His hematoma seems to be better. On exam the right shoulder area is softer and less tender. I have had extensive discussion with the patient and his . They are very knowledgeable about his condition. With his history of multiple strokes, he has high risk of developing recurrent stroke without anticoagulation which could be catastrophic. However, with anticoagulation there is a possibility of worsening hematoma. We discussed the pros and cons of restarting anticoagulation versus holding anticoagulation. Given his history, I think the best compromise is to start him back on Lovenox at 60 mg twice a day which may give him some protection against recurrent stroke and hopefully not extending his hematoma. He did well staying on the full dose of anticoagulation when he had retroperitoneal hematoma in August. The patient and his agree with the plan. I have told them IVC filter placement is not going to help in this situation. He has history of lower extremity DVT in 2002. On exam there is no evidence of recurrent clot. However, I am going to have him get an ultrasound of the lower extremities. If he has DVT, then we can consider IVC filter placement. If not, recommended to start him back on the Lovenox and observe him in the hospital at least overnight. If he tolerates it well, then he could be discharged and travel back to [place]. He has an appointment to see this teacher dramatics on Wednesday. 2. Recent history of spontaneous retroperitoneal hematoma while on Lovenox. He has repeat CT abdomen and pelvis which showed no residual hematoma. 3. Recent Staph bacteremia. He completed antibiotics. He has no clear evidence of infection at this time. 4. History of multiple strokes, as above. 5. Still's disease being followed by Rheumatology. He is also on prednisone. 6. History of temporal arteritis. 7. Hypertension. 8. Peptic ulcer disease. RECOMMENDATIONS 1. Extensive discussion with the patient and his . 2. Start Lovenox 60 mg twice a day. 3. Get ultrasound of lower extremities. 4. Observe him overnight to make sure he does not have worsening hematoma. 5. Monitor hemoglobin. Thank you Dr. Lozoya, for asking me to see this patient. MD ABA Cohen/JACLYN /5:12 PM /6:20 AM MIKE
[2017-10-29] MEDS: HYDROmorphone HCL PF 2 MG/ML VIAL IV PUSH PRN ×4 (07:33→20:30)
[2017-10-29 07:40] LABS: AUTOMATED NEUTROPHIL # 7.2 TH/MM3 (1.8-7.7); BASOPHIL % 0.3 % (0.0-2.0); EOSINOPHIL % 0.2 % (0.0-4.0); HEMATOCRIT 21.8 % (39.0-51.0); HEMOGLOBIN 7.7 GM/DL (13.0-17.0); LYMPH % 21.7 % (9.0-44.0); LYMPHOCYTE # 2.2 TH/MM3 (1.0-4.8); MEAN CELL VOLUME 85.5 FL (80.0-100.0); MEAN CORPUSCULAR HGB CONC 35.1 % (32.0-36.0); MONO % 7.8 % (0.0-8.0); MONOCYTE # 0.8 TH/MM3 (0-0.9); PLATELET COUNT 113 TH/MM3 (150-450); RED BLOOD COUNT 2.55 MIL/MM3 (4.50-5.90); RED CELL DISTRIBUTION WIDTH 15.6 % (11.6-17.2); WHITE BLOOD COUNT 10.3 TH/MM3 (4.0-11.0)
[2017-10-29] MEDS ORDERED: cloNIDine HCL 0.1 MG TAB PO PRN (08:30)
[2017-10-29] MEDS ORDERED: SODIUM CHLOR 0.9% 250 ML INJ 250 ML IV ONE (08:30)
[2017-10-29 08:36] LABS: BICARBONATE 27.5 MEQ/L (21.0-32.0); CALCIUM 8.3 MG/DL (8.5-10.1); CREATININE 1.52 MG/DL (0.60-1.30); MAGNESIUM 2.2 MG/DL (1.5-2.5)
[2017-10-29] MEDS: PIPERACIL-TAZO 3.375 GM PREMIX 50 ML IV SCH ×2 (09:00→14:53)
[2017-10-29 09:02] LABS: BANDS 3 % (0-6); CORRECTED NUCLEATED RBC 2 /100 WBC (0-0); LYMPHOCYTES 19 % (9-44); METAMYELOCYTES 1 % (0-1); MONOCYTES 6 % (0-8); MYELOCYTES 4 % (0-0); NEUTROPHIL # MANUAL DIFF 7.7 TH/MM3 (1.8-7.7); NUCLEATED RED BLOOD CELL 2 (0-0); POLYS (SEG NEUTROPHILS) 66 % (16-70); PROMYELOCYTES 1 % (0-0)
[2017-10-29] MEDS: DOCUSATE SODIUM 50 MG/SENNA 8.6 MG TAB PO SCH ×2 (09:37→20:26)
[2017-10-29] MEDS: predniSONE 20 MG TAB PO SCH (09:37)
[2017-10-29] MEDS: FAMOTIDINE 20 MG TAB PO SCH (09:37)
[2017-10-29] MEDS: HYDROCHLOROTHIAZIDE 12.5 MG CAP PO SCH (09:37)
--- NOTE | 2017-10-29 10:21 | RADRPT ---
EXAM DATE/TIME: 10/29/2017 09:51 [facility] COMPARISON: CT THORAX W/O CONTRAST, October 27, 2017, 15:25. INDICATIONS : Follow up hematoma. RADIATION DOSE: 18.64 CTDIvol (mGy) MEDICAL HISTORY : Cerebrovascular disease. Cardiovascular disease Hypertension. SURGICAL HISTORY : Appendectomy. ENCOUNTER: Initial ACUITY: 1 day PAIN SCALE: 10/10 LOCATION: Right chest TECHNIQUE: Volumetric scanning of the chest was performed. Using automated exposure control and adjustment of t he mA and/or kV according to patient size, radiation dose was kept as low as reasonably achievable to obtain optimal diagnostic quality images. DICOM format image data is available electronically for r eview and comparison. Follow-up recommendations for detected pulmonary nodules are based at a minimum on nodule size and pa tient risk factors according to Fleischner Society Guidelines. FINDINGS: LUNGS: Mild dependent atelectasis on the right. No significant pulmonary nodule observed on the current stud y. No acute infiltrate. PLEURAE: There is a tiny posterior layering right pleural effusion. No effusion on the left. MEDIASTINUM: The heart is normal in size. Small pericardial effusion. Significant coronary artery and aortic ather osclerotic calcifications. Pulmonary arteries are normal in caliber. No adenopathy. AXILLAE: Again seen is a large subpectoral hematoma on the right. This measures 12.1 x 11.3 x 5.6 cm which is larger from the prior exam where it measured 10.3 x 9.0 x 3.7 cm. There is a mixture of density throu ghout the hematoma largely hypoechoic relative to the adjacent pectoralis muscle. MUSCULOSKELETAL: Within normal limits for patient age. MISCELLANEOUS: The visualized upper abdominal organs demonstrate no acute abnormality. CONCLUSION: 1. Increase in size of a right subpectoral hematoma growing from 10.3 x 9.0 x 3.7 cm to 12.1 x 1.3 x 5.6 cm. 2. Tiny right effusion with dependent atelectasis. 3. Significant coronary artery atherosclerotic calcifications. Jayesh Cole Jr., MD on October 29, 2017 at 10:12 Board Certified Radiologist. This report was verified electronically.
--- NOTE | 2017-10-29 11:31 | HHI.PR ---
Subjective Remarks Follow-up chest wall hematoma. Continues to have chest wall discomfort. Also reports of headache. BP is elevated likely secondary to pain. Agrees with blood transfusion. Discussed with RN Objective Vitals Vital Signs Date Time Temp Pulse Resp B/P (MAP) Pulse Ox O2 Delivery O2 Flow Rate FiO2 10/29/17 10:15 98.3 95 18 176/81 98 10/29/17 07:23 97.0 73 18 196/86 (122) 98 10/29/17 03:18 18 10/29/17 03:17 99.3 76 16 187/81 (116) 97 10/28/17 23:51 97.8 77 16 162/74 (103) 98 10/28/17 20:19 98.8 81 16 115/58 (77) 98 10/28/17 19:30 18 10/28/17 17:55 74 10/28/17 16:10 98.2 80 19 126/59 (81) 96 10/28/17 12:00 98.9 70 20 128/60 (82) 96 I/O 10/28/17 10/28/17 10/28/17 10/29/17 10/29/17 10/29/17 07:00 15:00 23:00 07:00 15:00 23:00 Intake Total 3400 ml 900 ml 100 ml 1370 ml 10 ml Output Total 300 ml Balance 3100 ml 900 ml 100 ml 1370 ml 10 ml Intake Oral 500 ml IV Total 800 ml 100 ml 100 ml 1370 ml Packed Cells 800 ml 400 ml Blood Product IV Normal Saline Flush 800 ml 400 ml 10 ml Other 500 ml Output Urine Total 300 ml Result Diagram: 10/29/17 0608 10/29/17 0608 Imaging Last Impressions Head CT 10/29/17 0000 Signed Impressions: Service Date/Time: Sunday, October 29, 2017 11:18 - CONCLUSION: 1. Atrophy. 2. Age-indeterminate, but likely chronic, left thalamic lacunar infarction. 3. No acute intracranial abnormality. Jayesh Cole Jr., MD Chest CT 10/29/17 0000 Signed Impressions: Service Date/Time: Sunday, October 29, 2017 09:51 - CONCLUSION: 1. Increase in size of a right subpectoral hematoma growing from 10.3 x 9.0 x 3.7 cm to 12.1 x 1.3 x 5.6 cm. 2. Tiny right effusion with dependent atelectasis. 3. Significant coronary artery atherosclerotic calcifications. Jayesh Cole Jr., MD Lower Extremity Ultrasound 10/28/17 0000 Signed Impressions: Service Date/Time: October 09:24 - CONCLUSION: Normal examination. Jayesh Cole Jr., MD Abdomen/Pelvis CT 10/27/17 1922 Signed Impressions: Service Date/Time: Friday, October 27, 2017 19:35 - CONCLUSION: 1. Negative for free fluid or retroperitoneal hemorrhage. 2. Previous hernia repair. No acute findings within the abdomen or pelvis. Mild constipation. Boby Majano MD Objective Remarks GENERAL: This is a well-nourished, well-developed patient, in no distress SKIN: right upper chest ecchymosis all around deltoid CARDIOVASCULAR: Regular rate and rhythm without murmurs, gallops, or rubs. RESPIRATORY: Clear to auscultation. Breath sounds equal bilaterally. No wheezes , rales, or rhonchi. GASTROINTESTINAL: Abdomen soft although distended,. No guarding. MUSCULOSKELETAL: Extremities without clubbing, cyanosis, or edema. No calf tenderness. NEUROLOGICAL: Awake and alert. Motor and sensory grossly within normal limits. Normal speech. Procedures none A/P Problem List: (1) Hematoma ICD Code: T14.8XXA - Other injury of unspecified body region, initial encounter Status: Acute (2) Coagulopathy ICD Code: D68.9 - Coagulation defect, unspecified Status: Acute Assessment and Plan Large right chest hematoma from anticoagulation. Status post surgery evaluation no intervention at this time. Increasing hematoma on repeat CT anticoagulation discontinued at this time. Pain management with Lortab and IV Dilaudid counseled regarding narcotics Symptomatic anemia. Secondary to acute blood loss anemia. Additional unit of packed RBC being transfused keep hemoglobin at least 8. Repeat CBC tomorrow Leukocytosis with left shift. In a patient who had recent sepsis with MSSA bacteremia. Patient on steroids likely reason for leukocytosis. Patient does not have any signs and symptoms of infection except for chronic intermittent chills. Cultures negative we'll discontinue IV vancomycin and Zosyn. Acute kidney injury. Nonoliguric. Urinalysis unremarkable. Improving on IV hydration. Avoid nephrotoxins Abdominal pain. Abdominal CT negative. This is likely secondary to constipation. Start bowel regimen htn. Worse secondary to pain continue home medication with clonidine as needed VEGA with hx CVA. HCT without acute findings. Neurochecks Hypercoagulable state with history of DVT LLE- 2002- was treated with coumadin then on lovenox since Jun 2017, Pulmonary Embolism 2002, Antiphospholipid antibody and multiple CVA - no residual - apart from mild left eye visual problem and some left foot dragging at times. Anticoagulation per hematology currently on hold secondary to worsening hematoma Still disease - in remission - but getting worse with flare up now and Temporal Arteritis. Continue prednisone PUD on Zantac Discharge Planning Discharge when cleared by hematology Ez Parada MD Oct 29, 2017 11:31
--- NOTE | 2017-10-29 11:39 | RADRPT ---
EXAM DATE/TIME: 10/29/2017 11:18 [facility] COMPARISON: CT BRAIN W/O CONTRAST, October 27, 2017, 15:21. INDICATIONS : Intracerebral hemorrhage. RADIATION DOSE: 56.35 CTDIvol (mGy) MEDICAL HISTORY : Cerebrovascular disease. Cardiovascular disease Hypertension.RA,CVA SURGICAL HISTORY : Appendectomy. ENCOUNTER: Subsequent ACUITY: 2 days PAIN SCALE: 0/10 LOCATION: cranial TECHNIQUE: Multiple contiguous axial images were obtained of the head. Using automated exposure control and adj ustment of the mA and/or kV according to patient size, radiation dose was kept as low as reasonably a chievable to obtain optimal diagnostic quality images. DICOM format image data is available electro nically for review and comparison. FINDINGS: CEREBRUM: Encephalomalacia multiple left occipital lobe. 5 mm rounded low attenuation focus involving the left thalamus. It is more pronounced than on the prior study. The ventricles are normal for age. No evide nce of midline shift, mass lesion, hemorrhage or acute infarction. No extra-axial fluid collections are seen. POSTERIOR FOSSA: The cerebellum and brainstem are intact. The 4th ventricle is midline. The cerebellopontine angle i s unremarkable. EXTRACRANIAL: The visualized portion of the orbits is intact. SKULL: The calvaria is intact. No evidence of skull fracture. CONCLUSION: 1. Atrophy. 2. Age-indeterminate, but likely chronic, left thalamic lacunar infarction. 3. No acute intracranial abnormality. Jayesh Cole Jr., MD on October 29, 2017 at 11:34 Board Certified Radiologist. This report was verified electronically.
--- NOTE | 2017-10-29 11:44 | PD.ONC.PN ---
Subjective Subjective Remarks Afebrile overnight. Late entry, patient seen at Patient resting in bed. Reports pain in shoulder worsened overnight. No numbness or tingling or change in mobility in arm. No loss of feeling or weakness. Patient states he also has a bad headache. Frontal in location. Objective Data Date Time Temp Pulse Resp B/P (MAP) Pulse Ox O2 Delivery O2 Flow Rate FiO2 10/29/17 10:15 98.3 95 18 176/81 98 10/29/17 07:23 97.0 73 18 196/86 (122) 98 10/29/17 03:18 18 10/29/17 03:17 99.3 76 16 187/81 (116) 97 10/28/17 23:51 97.8 77 16 162/74 (103) 98 10/28/17 20:19 98.8 81 16 115/58 (77) 98 10/28/17 19:30 18 10/28/17 17:55 74 10/28/17 16:10 98.2 80 19 126/59 (81) 96 10/28/17 12:00 98.9 70 20 128/60 (82) 96 10/29/17 10/29/17 10/29/17 07:00 15:00 23:00 Intake Total 1370 ml 10 ml Balance 1370 ml 10 ml Result Diagram: 10/29/17 0608 10/29/17 0608 Laboratory Results Laboratory Tests Test 10/28/17 16:29 10/29/17 06:08 Hemoglobin 8.6 GM/DL 7.7 GM/DL Hematocrit 24.7 % 21.8 % White Blood Count 10.3 TH/MM3 Red Blood Count 2.55 MIL/MM3 Mean Corpuscular Volume 85.5 FL Mean Corpuscular Hemoglobin 30.0 PG Mean Corpuscular Hemoglobin Concent 35.1 % Red Cell Distribution Width 15.6 % Platelet Count 113 TH/MM3 Mean Platelet Volume 8.0 FL Neutrophils (%) (Auto) 70.0 % Lymphocytes (%) (Auto) 21.7 % Monocytes (%) (Auto) 7.8 % Eosinophils (%) (Auto) 0.2 % Basophils (%) (Auto) 0.3 % Neutrophils # (Auto) 7.2 TH/MM3 Lymphocytes # (Auto) 2.2 TH/MM3 Monocytes # (Auto) 0.8 TH/MM3 Eosinophils # (Auto) 0.0 TH/MM3 Basophils # (Auto) 0.0 TH/MM3 CBC Comment AUTO DIFF Differential Total Cells Counted 100 Neutrophils % (Manual) 66 % Band Neutrophils % 3 % Lymphocytes % 19 % Monocytes % 6 % Neutrophils # (Manual) 7.7 TH/MM3 Metamyelocytes 1 % Myelocytes 4 % Promyelocytes 1 % Nucleated Red Blood Cells 2 /100 WBC Differential Comment FINAL DIFF MANUAL Platelet Estimate LOW Platelet Morphology Comment NORMAL Polychromasia 2.0 % Blood Urea Nitrogen 23 MG/DL Creatinine 1.52 MG/DL Random Glucose 116 MG/DL Calcium Level 8.3 MG/DL Magnesium Level 2.2 MG/DL Sodium Level 138 MEQ/L Potassium Level 3.6 MEQ/L Chloride Level 103 MEQ/L Carbon Dioxide Level 27.5 MEQ/L Anion Gap 8 MEQ/L Estimat Glomerular Filtration Rate 46 ML/MIN Culture Results Microbiology Date/Time Source Procedure Growth Status 10/27/17 20:30 Blood Peripheral Aerobic Blood Culture - Preliminary NO GROWTH IN 2 DAYS Resulted 10/27/17 20:30 Blood Peripheral Anaerobic Blood Culture - Preliminary NO GROWTH IN 2 DAYS Resulted 10/27/17 20:25 Blood Peripheral Aerobic Blood Culture - Preliminary NO GROWTH IN 2 DAYS Resulted 10/27/17 20:25 Blood Peripheral Anaerobic Blood Culture - Preliminary NO GROWTH IN 2 DAYS Resulted Imaging Studies Last [address] 10/29/17 0000 Signed Impressions: Service Date/Time: Sunday, October 29, 2017 09:51 - CONCLUSION: 1. Increase in size of a right subpectoral hematoma growing from 10.3 x 9.0 x 3.7 cm to 12.1 x 1.3 x 5.6 cm. 2. Tiny right effusion with dependent atelectasis. 3. Significant coronary artery atherosclerotic calcifications. Jayesh Cole Jr., MD Administered Medications Medications (Trade) Dose Ordered Sig/Aayush Route PRN Reason Start Time Stop Time Status Last Admin Dose Admin Sodium Chloride (NS Flush) 2 ml BID IV FLUSH 10/27/17 21:00 10/29/17 00:52 Acetaminophen/ Hydrocodone Bitart ([place] 5-325 Mg) 1 tab Q4H PRN PO pain <5 10/27/17 17:00 10/29/17 09:36 Hydromorphone HCl (Dilaudid Pf Inj) 2 mg Q4H PRN IV PUSH pain >5 10/27/17 18:00 10/28/17 19:09 Sodium Chloride 1,000 ml @ 100 mls/hr Q10H IV 10/27/17 19:00 10/29/17 00:52 Amlodipine Besylate (Norvasc) 10 mg DAILY PO 10/28/17 09:00 10/29/17 09:37 Hydrochlorothiazide (Microzide) 12.5 mg DAILY PO 10/28/17 09:00 10/29/17 09:37 Prednisone (Deltasone) 40 mg DAILY PO 10/28/17 09:00 10/29/17 09:37 Zolpidem Tartrate (Ambien) 10 mg HS PRN PO INSOMNIA 10/27/17 20:45 10/29/17 00:51 Famotidine (Pepcid) 20 mg DAILY PO 10/27/17 21:00 10/29/17 09:37 Enoxaparin Sodium (Lovenox Inj) 60 mg Q12H SQ 10/28/17 11:00 Future Hold 10/28/17 23:20 Vancomycin HCl 2000 mg/Sodium Chloride 520 ml @ 250 mls/hr Q24H IV 10/28/17 21:00 10/28/17 23:19 Senna/Docusate Sodium (Mckenna-Colace) 1 tab BID PO 10/28/17 21:00 10/29/17 09:37 Piperacillin Sod/ Tazobactam Sod 50 ml @ 100 mls/hr Q6H IV 10/29/17 03:00 10/28/17 23:20 Sodium Chloride 250 ml @ 15 mls/hr ONCE ONCE IV 10/29/17 08:30 10/30/17 01:09 10/29/17 09:52 Objective Remarks GENERAL: Middle aged male, sitting up in bed in [facility]. SKIN: Warm and dry. HEAD: Normocephalic. EYES: No injection or drainage. NECK: Supple, trachea midline. CARDIOVASCULAR: Regular rate and rhythm RESPIRATORY: Breath sounds equal bilaterally. No accessory muscle use. GASTROINTESTINAL: Abdomen soft, non-tender, nondistended. EXTREMITIES: No cyanosis. right shoulder with extensive swelling extending into the right pectoralis. bruising also noted. patient able to move forearm and hand freely without inhibition. light touch sensation intact in fingertips. NEUROLOGICAL: awake and alert. normal speech. facial movements symmetric. able to move all extremities (right shoulder movement limited d/t hematoma). no obvious focal deficit. Assessment/Plan Problem List: (1) Hemarthrosis, right shoulder ICD Codes: M25.011 - Hemarthrosis, right shoulder Plan: --hold anticoagulation, keep ice on shoulder. --hematoma in the setting of h/o multiple strokes--patient with conflicting needs. History (brought forward from initial consult for continuity of care) first diagnosed with left lower extremity deep venous thrombosis in 2002. At that time he also had pulmonary embolism. He was started on Coumadin. He later was found to have antiphospholipid antibody syndrome. He was doing well but in early 2016 he had multiple strokes and TIA. His stated he had a total of about eight strokes. At that time he was taking Coumadin and reportedly therapeutic. He was then switched to Eliquis. Unfortunately, in June 2017 he had another stroke while on Eliquis. He was then switched over to Lovenox 120 mg subcutaneous injection twice a day. Around August he developed significant abdominal pain. He eventually had to be transferred from [place] to [facility] in [place]. At that time he was found to have a spontaneous retroperitoneal hematoma. According to his , the patient was maintained on Lovenox because of his history of multiple strokes. He recovered from that episode. He also had a Staph infection which possibly was caused by his left elbow infected cyst. He completed antibiotic last Wednesday. He went to see his Infectious Disease doctor in [place]. Due to his complicated history and all his family is in [place], he was advised to go back to [place]. The patient's stated that the patient started having right shoulder tenderness. By Wednesday night she started seeing purplish bruise on his right shoulder. They decided to leave and head up to [place] that night. When they got to the [facility] he started having more tenderness and increased warmth on the right shoulder. They called his hosiery pairer in [place] and were told to go to the nearest trauma center and he presented to the emergency room. CT scan showed a large hematoma in the subpectoral area. The patient was admitted. His anticoagulation was stopped. His last Lovenox injection was on the morning of October 27. Assessment 67y/o male with antiphospholipid antibody syndrome, admitted with hematoma. h/o Antiphospholipid antibody syndrome. Deep venous thrombosis and pulmonary embolism in 2003. Multiple strokes in 2017. Rheumatoid arthritis. Still's disease. Hypertension. Temporal arteritis. Bacteremia with Staph infection August 2017. Peptic ulcer disease. Plan 1. stop all anticoagulation 2. ice to shoulder 3. obtain CT brain for headache 4. transfer to floor 5. 1 unit pRBC 6. monitor H/H Attending Statement The exam, history, and the medical decision-making described in the above note were completed with the assistance of the mid-level provider. I reviewed and agree with the findings presented. I attest that I had a [id number] encounter with the patient on the same day, and personally performed and documented my assessment and findings in the medical record. Pt restarted lovenox yesterday. Hgb trended lower this morning. Repeat CT showed the hematoma is larger. Lovenox was d/c. US LE no DVT. Hopefully can restart lovenox in 1-2 days when H/H stabilize. He need to be on anticoagulation with h /o antiphospholipid antibodies. Monitor for sign of stroke. Had headached but CT head showed no acute changes. Adore Qureshi Oct 29, 2017 11:44 Emmanuel Cohen MD Oct 29, 2017 17:47
[2017-10-29 15:23] LABS: HEMATOCRIT 25.7 % (39.0-51.0); HEMOGLOBIN 8.8 GM/DL (13.0-17.0)
[2017-10-29 15:30] LABS: INTERNATIONAL NORMALIZED RATIO 1.1 RATIO; PROTHROMBIN TIME - PATIENT 11.4 SEC (9.8-11.6)
[2017-10-30] VITALS (17 sets, daily range): BP systolic 151–174; BP diastolic 67–82; PULSE 52–111; RESP 16–20; TEMP 96.3–98.6; O2SAT 95–99
[2017-10-30] MEDS: HYDROmorphone HCL PF 2 MG/ML VIAL IV PUSH PRN ×5 (00:49→23:42)
[2017-10-30] MEDS: ACETAMINOPHEN/HYDROcodone 325 MG/5 MG TAB PO PRN ×4 (03:37→22:17)
[2017-10-30] MEDS: SODIUM CHLOR 0.9% 1000 ML INJ 1,000 ML IV SCH ×2 (05:43→15:23)
[2017-10-30 08:27] LABS: AUTOMATED NEUTROPHIL # 8.7 TH/MM3 (1.8-7.7); BASOPHIL % 0.4 % (0.0-2.0); EOSINOPHIL % 0.3 % (0.0-4.0); HEMATOCRIT 26.7 % (39.0-51.0); HEMOGLOBIN 9.2 GM/DL (13.0-17.0); LYMPH % 26.6 % (9.0-44.0); LYMPHOCYTE # 3.6 TH/MM3 (1.0-4.8); MEAN CELL VOLUME 85.8 FL (80.0-100.0); MEAN CORPUSCULAR HEMOGLOBIN 29.5 PG (27.0-34.0); MEAN CORPUSCULAR HGB CONC 34.3 % (32.0-36.0); MEAN PLATELET VOLUME 7.8 FL (7.0-11.0); MONO % 7.4 % (0.0-8.0); NEUT % 65.3 % (16.0-70.0); PLATELET COUNT 116 TH/MM3 (150-450); RED BLOOD COUNT 3.11 MIL/MM3 (4.50-5.90); RED CELL DISTRIBUTION WIDTH 15.4 % (11.6-17.2); WHITE BLOOD COUNT 13.4 TH/MM3 (4.0-11.0)
[2017-10-30 08:39] LABS: BICARBONATE 24.2 MEQ/L (21.0-32.0); CALCIUM 8.8 MG/DL (8.5-10.1); CREATININE 1.44 MG/DL (0.60-1.30); MAGNESIUM 2.3 MG/DL (1.5-2.5)
[2017-10-30] MEDS: SODIUM CHLORIDE 0.9% FLUSH 10 ML FLUSH IV FLUSH SCH ×2 (09:00→21:00)
[2017-10-30 09:21] LABS: BANDS 3 % (0-6); CORRECTED NUCLEATED RBC 2 /100 WBC (0-0); LYMPHOCYTES 14 % (9-44); METAMYELOCYTES 3 % (0-1); MONOCYTES 3 % (0-8); NUCLEATED RED BLOOD CELL 2 (0-0); POLYS (SEG NEUTROPHILS) 76 % (16-70)
[2017-10-30 09:22] LABS: TOXIC GRANULATION 2+ (NORMAL)
[2017-10-30] MEDS: predniSONE 20 MG TAB PO SCH (09:33)
[2017-10-30] MEDS: DOCUSATE SODIUM 50 MG/SENNA 8.6 MG TAB PO SCH ×2 (09:33→21:00)
[2017-10-30] MEDS: FAMOTIDINE 20 MG TAB PO SCH (09:33)
[2017-10-30] MEDS: HYDROCHLOROTHIAZIDE 12.5 MG CAP PO SCH (09:34)
[2017-10-30] MEDS: LACTULOSE SYRUP 20 GM/30 ML CUP PO PRN (10:08)
[2017-10-30] MEDS ORDERED: ACETAMIN 325 MG/BUTALBITAL 50 MG/CAFFEINE 40 MG TAB PO ONE (12:00)
--- NOTE | 2017-10-30 14:47 | HHI.PR ---
Subjective Remarks To headache today. No focal neuro deficits. He also complains of fatigue which has been present for months. We discussed possibility of anemia contributing to his fatigue, however there is no outpatient blood draws to verify this. Also he could have vitamin deficiencies or hypothyroidism so further screening will be performed. Objective Vital Signs Date Time Temp Pulse Resp B/P (MAP) Pulse Ox O2 Delivery O2 Flow Rate FiO2 10/30/17 14:08 52 10/30/17 12:58 111 10/30/17 12:00 97.2 103 18 161/70 (100) 97 10/30/17 11:57 60 10/30/17 08:00 81 10/30/17 04:15 78 10/30/17 03:49 98.6 80 16 171/76 (107) 97 10/30/17 00:20 82 10/30/17 00:00 97.9 87 17 151/67 (95) 98 10/29/17 20:00 97.7 81 16 131/61 (84) 99 10/29/17 20:00 77 10/29/17 18:29 77 10/29/17 16:00 96.5 79 16 125/58 (80) 96 I/O 10/29/17 10/29/17 10/29/17 10/30/17 10/30/17 10/30/17 07:00 15:00 23:00 07:00 15:00 23:00 Intake Total 1370 ml 420 ml 1203 ml 1395 ml 734 ml Balance 1370 ml 420 ml 1203 ml 1395 ml 734 ml Intake Oral 720 ml 480 ml IV Total 1370 ml 483 ml 915 ml 734 ml Packed Cells 400 ml Blood Product IV Normal Saline Flush 20 ml # Voids 1 1 Result Diagram: 10/30/17 0734 10/30/17 0734 Objective Remarks GENERAL: NAD, A&Ox3 HEAD: Normocephalic. NECK: Supple, trachea midline. No lymphadenopathy. EYES: No scleral icterus. No injection or drainage. CARDIOVASCULAR: Regular rate and rhythm without murmurs, gallops, or rubs. RESPIRATORY: Breath sounds equal bilaterally. No accessory muscle use. GASTROINTESTINAL: Abdomen soft, non-tender, nondistended. MUSCULOSKELETAL: No cyanosis, or edema. Right lateral pectoralis and axillary areas have palpable areas of induration/hematoma. SKIN: Warm and dry. Bruising extends beyond palpable area of hematoma. NEURO: No focal neurological deficitis. A/P Problem List: (1) Hemarthrosis, right shoulder ICD Code: M25.011 - Hemarthrosis, right shoulder (2) Hematoma ICD Code: T14.8XXA - Other injury of unspecified body region, initial encounter Status: Acute (3) Coagulopathy ICD Code: D68.9 - Coagulation defect, unspecified Status: Acute (4) Anemia ICD Code: D64.9 - Anemia, unspecified Status: Acute Assessment and Plan 67-year-old male admitted secondary to spontaneous right chest/axilla hematoma. Large right chest hematoma Chronic hypercoagulopathy Antiphospholipid antibody syndrome History of pulmonary embolism Numerous histories of CVA Related to anticoagulation, patient needs chronic anticoagulation due to hypercoagulopathy Continue to monitor CBC Hematology following Potential plan for resumption of Lovenox tomorrow Symptomatic anemia Secondary to acute blood loss Improving Continue to monitor CBC Transfuse again if needed Acute kidney injury Follow renal function Avoid nephrotoxins Improved with IV hydration Hypertension Continue clonidine as needed Continue baseline treatment Follow blood pressures Headache No clinical evidence of acute CVA Current headaches do not match his history of temporal arteritis Etiology for the headache may be referred pain from disturbance of the brachial plexus secondary to hematoma Still disease History of temporal arteritis Continue prednisone Peptic ulcer disease Continue Zantac Fatigue Check B12, vitamin D, thyroid panel, ferritin, TIBC, and iron levels Discharge Planning Plan to resume Lovenox and monitor for recurrence of bleed, if patient is stable after this measure, discharge will be considered when hematology clears patient. Edil Garcia MD Oct 30, 2017 14:47
[2017-10-30 16:36] LABS: IRON (FE) 38 MCG/DL (65-175); THYROXINE (T4) 4.8 MCG/DL (4.5-12.1)
[2017-10-30 17:01] LABS: % SATURATION IRON PROFILE 13.9 % (20-50); FERRITIN 361 NG/ML (26-388); FREE T3 1.83 PG/ML (2.18-3.98); TOTAL IRON BINDING CAPACITY 273 MCG/DL (250-450)
--- NOTE | 2017-10-30 19:55 | PD.ONC.PN ---
Subjective Subjective Remarks Afebrile Pt resting in bed in no obvious distress Pain in shoulder improving Objective Data Date Time Temp Pulse Resp B/P (MAP) Pulse Ox O2 Delivery O2 Flow Rate FiO2 10/30/17 18:06 85 10/30/17 17:13 68 10/30/17 16:22 68 10/30/17 15:57 96.8 88 18 156/72 (100) 99 10/30/17 14:41 83 10/30/17 14:08 52 10/30/17 12:58 111 10/30/17 12:00 97.2 103 18 161/70 (100) 97 10/30/17 11:57 60 10/30/17 08:00 81 10/30/17 08:00 96.8 82 16 174/70 (104) 96 10/30/17 04:15 78 10/30/17 03:49 98.6 80 16 171/76 (107) 97 10/30/17 00:20 82 10/30/17 00:00 97.9 87 17 151/67 (95) 98 10/29/17 20:00 97.7 81 16 131/61 (84) 99 10/29/17 20:00 77 10/30/17 10/30/17 10/30/17 07:00 15:00 23:00 Intake Total 1395 ml 734 ml 960 ml Balance 1395 ml 734 ml 960 ml Result Diagram: 10/30/17 0734 10/30/17 0734 Laboratory Results Laboratory Tests Test 10/30/17 07:34 White Blood Count 13.4 TH/MM3 Red Blood Count 3.11 MIL/MM3 Hemoglobin 9.2 GM/DL Hematocrit 26.7 % Mean Corpuscular Volume 85.8 FL Mean Corpuscular Hemoglobin 29.5 PG Mean Corpuscular Hemoglobin Concent 34.3 % Red Cell Distribution Width 15.4 % Platelet Count 116 TH/MM3 Mean Platelet Volume 7.8 FL Neutrophils (%) (Auto) 65.3 % Lymphocytes (%) (Auto) 26.6 % Monocytes (%) (Auto) 7.4 % Eosinophils (%) (Auto) 0.3 % Basophils (%) (Auto) 0.4 % Neutrophils # (Auto) 8.7 TH/MM3 Lymphocytes # (Auto) 3.6 TH/MM3 Monocytes # (Auto) 1.0 TH/MM3 Eosinophils # (Auto) 0.0 TH/MM3 Basophils # (Auto) 0.0 TH/MM3 CBC Comment AUTO DIFF Differential Total Cells Counted 100 Neutrophils % (Manual) 76 % Band Neutrophils % 3 % Lymphocytes % 14 % Monocytes % 3 % Eosinophils % 1 % Neutrophils # (Manual) 11.0 TH/MM3 Metamyelocytes 3 % Nucleated Red Blood Cells 2 /100 WBC Differential Comment FINAL DIFF MANUAL Toxic Granulation 2+ Platelet Estimate LOW Platelet Morphology Comment NORMAL Polychromasia 2.0 % Blood Urea Nitrogen 18 MG/DL Creatinine 1.44 MG/DL Random Glucose 105 MG/DL Calcium Level 8.8 MG/DL Magnesium Level 2.3 MG/DL Sodium Level 137 MEQ/L Potassium Level 3.7 MEQ/L Chloride Level 102 MEQ/L Carbon Dioxide Level 24.2 MEQ/L Anion Gap 11 MEQ/L Estimat Glomerular Filtration Rate 49 ML/MIN Iron Level 38 MCG/DL Total Iron Binding Capacity 273 MCG/DL Percent Iron Saturation 13.9 % Ferritin 361 NG/ML Vitamin B12 Level 258 PG/ML Thyroxine (T4) 4.8 MCG/DL Free Triiodothyronine (T3) pg/dL 1.83 PG/ML Thyroid Stimulating Hormone 3rd Gen 2.800 uIU/ML Culture Results Microbiology Date/Time Source Procedure Growth Status 10/27/17 20:30 Blood Peripheral Aerobic Blood Culture - Preliminary NO GROWTH IN 3 DAYS Resulted 10/27/17 20:30 Blood Peripheral Anaerobic Blood Culture - Preliminary NO GROWTH IN 3 DAYS Resulted 10/27/17 20:25 Blood Peripheral Aerobic Blood Culture - Preliminary NO GROWTH IN 3 DAYS Resulted 10/27/17 20:25 Blood Peripheral Anaerobic Blood Culture - Preliminary NO GROWTH IN 3 DAYS Resulted Administered Medications Medications (Trade) Dose Ordered Sig/Aayush Route PRN Reason Start Time Stop Time Status Last Admin Dose Admin Sodium Chloride (NS Flush) 2 ml BID IV FLUSH 10/27/17 21:00 10/29/17 00:52 Acetaminophen/ Hydrocodone Bitart ([place] 5-325 Mg) 1 tab Q4H PRN PO pain <5 10/27/17 17:00 10/30/17 16:56 Hydromorphone HCl (Dilaudid Pf Inj) 2 mg Q4H PRN IV PUSH pain >5 10/27/17 18:00 10/30/17 15:23 Sodium Chloride 1,000 ml @ 100 mls/hr Q10H IV 10/27/17 19:00 10/30/17 15:23 Amlodipine Besylate (Norvasc) 10 mg DAILY PO 10/28/17 09:00 10/30/17 09:34 Hydrochlorothiazide (Microzide) 12.5 mg DAILY PO 10/28/17 09:00 10/30/17 09:34 Prednisone (Deltasone) 40 mg DAILY PO 10/28/17 09:00 10/30/17 09:33 Zolpidem Tartrate (Ambien) 10 mg HS PRN PO INSOMNIA 10/27/17 20:45 10/29/17 21:19 Famotidine (Pepcid) 20 mg DAILY PO 10/27/17 21:00 10/30/17 09:33 Enoxaparin Sodium (Lovenox Inj) 60 mg Q12H SQ 10/28/17 11:00 Future Hold 10/28/17 23:20 Senna/Docusate Sodium (Mckenna-Colace) 1 tab BID PO 10/28/17 21:00 10/30/17 09:33 Lactulose (Lactulose Liq) 30 ml DAILY PRN PO SEVERE CONSITIPATION 10/28/17 15:15 10/30/17 10:08 Objective Remarks GENERAL: Older male, resting in bed in no obvious distress. SKIN: Warm and dry. Massive hematoma to R shoulder that extends down R flank. HEAD: Normocephalic. EYES: No injection or drainage. NECK: Supple, trachea midline. CARDIOVASCULAR: +S1/S2. No murmur noted. RESPIRATORY: Clear anteriorly. Breathing unlabored. GASTROINTESTINAL: Abdomen soft, non-tender, nondistended. EXTREMITIES: No cyanosis, or edema. MUSCULOSKELETAL: Adequate muscle tone. NEUROLOGICAL: No obvious focal deficit. Awake, alert, and oriented x3. Assessment/Plan Assessment 67y/o male with antiphospholipid antibody syndrome, admitted with hematoma. h/o Antiphospholipid antibody syndrome. Deep venous thrombosis and pulmonary embolism in 2003. Multiple strokes in 2017. Plan 1. CBC stable. 2. Will resume Lovenox in am at 60mg BID if no further bleed. Attending Statement The exam, history, and the medical decision-making described in the above note were completed with the assistance of the mid-level provider. I reviewed and agree with the findings presented. I attest that I had a [id number] encounter with the patient on the same day, and personally performed and documented my assessment and findings in the medical record. no further bleeding. GRR 49 ml. this may contribute to a higher level of lovenox. Spoke with Dr. Cohen and will resume Lovenox tomorrow at 60 mg sub cut q 12 hours and observe. He may be able to get away with a dose lower then 1 mg/Kg q 12 hours. he has had two major soft tissue bleeds on a dose of 120 mg of Lovenox every 12 hours. Mariama Silvestre Oct 30, 2017 19:55 Chris Grande MD Oct 30, 2017 20:00
[2017-10-30] MEDS ORDERED: PHARMACY ORDERED LAB ONE (20:45)
[2017-10-30] MEDS: ZOLPIDEM TARTRATE 10 MG TAB PO PRN (22:26)
[2017-10-31] VITALS (20 sets, daily range): BP systolic 110–182; BP diastolic 50–78; PULSE 60–98; RESP 16–20; TEMP 96.7–98.7; O2SAT 94–99
[2017-10-31] MEDS: ENALAPRILAT 1.25 MG/ML VIAL IV PUSH PRN (01:35)
[2017-10-31] MEDS: SODIUM CHLORIDE 0.9% FLUSH 10 ML FLUSH IV FLUSH PRN ×2 (01:35→06:25)
[2017-10-31] MEDS: ACETAMINOPHEN/HYDROcodone 325 MG/5 MG TAB PO PRN ×5 (03:32→21:31)
[2017-10-31] MEDS: SODIUM CHLOR 0.9% 1000 ML INJ 1,000 ML IV SCH ×3 (03:33→20:59)
[2017-10-31] MEDS: HYDROmorphone HCL PF 2 MG/ML VIAL IV PUSH PRN ×4 (06:25→20:02)
[2017-10-31] MEDS: cloNIDine HCL 0.1 MG TAB PO PRN (06:34)
[2017-10-31 07:28] LABS: BASOPHIL % 0.3 % (0.0-2.0); EOSINOPHIL % 0.3 % (0.0-4.0); HEMATOCRIT 23.6 % (39.0-51.0); HEMOGLOBIN 8.1 GM/DL (13.0-17.0); LYMPHOCYTE # 1.7 TH/MM3 (1.0-4.8); MEAN CELL VOLUME 86.1 FL (80.0-100.0); MEAN CORPUSCULAR HEMOGLOBIN 29.7 PG (27.0-34.0); MEAN CORPUSCULAR HGB CONC 34.4 % (32.0-36.0); MEAN PLATELET VOLUME 7.7 FL (7.0-11.0); MONO % 9.2 % (0.0-8.0); MONOCYTE # 0.9 TH/MM3 (0-0.9); NEUT % 72.2 % (16.0-70.0); PLATELET COUNT 77 TH/MM3 (150-450); RED BLOOD COUNT 2.74 MIL/MM3 (4.50-5.90); RED CELL DISTRIBUTION WIDTH 15.3 % (11.6-17.2); WHITE BLOOD COUNT 9.6 TH/MM3 (4.0-11.0)
[2017-10-31 07:49] LABS: ALBUMIN 2.7 GM/DL (3.4-5.0); AST (GOT) 14 U/L (15-37); BICARBONATE 25.6 MEQ/L (21.0-32.0); BLOOD UREA NITROGEN 17 MG/DL (7-18); CALCIUM 8.3 MG/DL (8.5-10.1); CHLORIDE 105 MEQ/L (98-107); CREATININE 1.27 MG/DL (0.60-1.30); GLOMERULAR FILTRATION RATE 57 ML/MIN (>89); GLUCOSE,RANDOM 112 MG/DL (74-106); SODIUM (NA) 139 MEQ/L (136-145)
[2017-10-31 07:54] LABS: ALKALINE PHOSPHATASE 97 U/L (45-117); ALT (GPT) 23 U/L (12-78); TOTAL BILIRUBIN ADULT 0.5 MG/DL (0.2-1.0); TOTAL PROTEIN 5.9 GM/DL (6.4-8.2)
[2017-10-31] MEDS: predniSONE 20 MG TAB PO SCH (08:36)
[2017-10-31] MEDS: HYDROCHLOROTHIAZIDE 12.5 MG CAP PO SCH (08:36)
[2017-10-31] MEDS: DOCUSATE SODIUM 50 MG/SENNA 8.6 MG TAB PO SCH ×2 (08:36→20:03)
[2017-10-31] MEDS: FAMOTIDINE 20 MG TAB PO SCH (08:36)
[2017-10-31] MEDS: SODIUM CHLORIDE 0.9% FLUSH 10 ML FLUSH IV FLUSH SCH ×2 (08:38→20:05)
[2017-10-31 08:57] LABS: BANDS 1 % (0-6); LYMPHOCYTES 23 % (9-44); MONOCYTES 7 % (0-8); MYELOCYTES 3 % (0-0); NEUTROPHIL # MANUAL DIFF 6.7 TH/MM3 (1.8-7.7); POLYS (SEG NEUTROPHILS) 66 % (16-70)
[2017-10-31] MEDS ORDERED: SODIUM CHLOR 0.9% 250 ML INJ 250 ML IV ONE (13:15)
[2017-10-31] MEDS ORDERED: ACETAMINOPHEN 325 MG TAB PO PRN (13:15)
[2017-10-31] MEDS ORDERED: diphenhydrAMINE HCL 25 MG CAP PO PRN (13:15)
--- NOTE | 2017-10-31 13:23 | PD.ONC.PN ---
Subjective Subjective Remarks Afebrile C/o L temporal headache No bleeding noted Objective Data Date Time Temp Pulse Resp B/P (MAP) Pulse Ox O2 Delivery O2 Flow Rate FiO2 10/31/17 12:37 76 10/31/17 12:15 97.3 75 17 140/67 (91) 95 10/31/17 11:55 87 10/31/17 09:54 88 10/31/17 08:00 98.2 80 16 149/68 (95) 94 10/31/17 07:47 83 10/31/17 03:45 98.7 78 18 178/73 (108) 97 10/31/17 00:15 98.0 90 16 182/74 (110) 95 10/30/17 23:47 96 10/30/17 19:44 85 10/30/17 19:15 96.3 83 20 172/82 (112) 95 10/30/17 18:06 85 10/30/17 17:13 68 10/30/17 16:22 68 10/30/17 15:57 96.8 88 18 156/72 (100) 99 10/30/17 14:41 83 10/30/17 14:08 52 10/31/17 10/31/17 10/31/17 07:00 15:00 23:00 Intake Total 2012 ml 409 ml Balance 2012 ml 409 ml Result Diagram: 10/31/1763210/31/1733 Laboratory Results Laboratory Tests Test 10/31/17 06:33 10/31/17 12:15 White Blood Count 9.6 TH/MM3 Red Blood Count 2.74 MIL/MM3 Hemoglobin 8.1 GM/DL Hematocrit 23.6 % Mean Corpuscular Volume 86.1 FL Mean Corpuscular Hemoglobin 29.7 PG Mean Corpuscular Hemoglobin Concent 34.4 % Red Cell Distribution Width 15.3 % Platelet Count 77 TH/MM3 Mean Platelet Volume 7.7 FL Neutrophils (%) (Auto) 72.2 % Lymphocytes (%) (Auto) 18.0 % Monocytes (%) (Auto) 9.2 % Eosinophils (%) (Auto) 0.3 % Basophils (%) (Auto) 0.3 % Neutrophils # (Auto) 7.0 TH/MM3 Lymphocytes # (Auto) 1.7 TH/MM3 Monocytes # (Auto) 0.9 TH/MM3 Eosinophils # (Auto) 0.0 TH/MM3 Basophils # (Auto) 0.0 TH/MM3 CBC Comment AUTO DIFF Differential Total Cells Counted 100 Neutrophils % (Manual) 66 % Band Neutrophils % 1 % Lymphocytes % 23 % Monocytes % 7 % Neutrophils # (Manual) 6.7 TH/MM3 Myelocytes 3 % Differential Comment FINAL DIFF MANUAL Platelet Estimate LOW Platelet Morphology Comment NORMAL Blood Urea Nitrogen 17 MG/DL Creatinine 1.27 MG/DL Random Glucose 112 MG/DL Total Protein 5.9 GM/DL Albumin 2.7 GM/DL Calcium Level 8.3 MG/DL Alkaline Phosphatase 97 U/L Aspartate Amino Transf (AST/SGOT) 14 U/L Alanine Aminotransferase (ALT/SGPT) 23 U/L Total Bilirubin 0.5 MG/DL Sodium Level 139 MEQ/L Potassium Level 3.4 MEQ/L Chloride Level 105 MEQ/L Carbon Dioxide Level 25.6 MEQ/L Anion Gap 8 MEQ/L Estimat Glomerular Filtration Rate 57 ML/MIN Random Cortisol 3.0 MCG/DL Erythrocyte Sedimentation Rate 82 mm/hr C-Reactive Protein 7.34 MG/DL Administered Medications Medications (Trade) Dose Ordered Sig/Aayush Route PRN Reason Start Time Stop Time Status Last Admin Dose Admin Sodium Chloride (NS Flush) 2 ml UNSCH PRN IV FLUSH FLUSH AFTER USING IV ACCESS 10/27/17 16:45 10/31/17 06:25 Sodium Chloride (NS Flush) 2 ml BID IV FLUSH 10/27/17 21:00 10/29/17 00:52 Acetaminophen/ Hydrocodone Bitart ([place] 5-325 Mg) 1 tab Q4H PRN PO pain <5 10/27/17 17:00 10/31/17 12:17 Hydromorphone HCl (Dilaudid Pf Inj) 2 mg Q4H PRN IV PUSH pain >5 10/27/17 18:00 10/31/17 10:49 Sodium Chloride 1,000 ml @ 100 mls/hr Q10H IV 10/27/17 19:00 10/31/17 10:49 Amlodipine Besylate (Norvasc) 10 mg DAILY PO 10/28/17 09:00 10/31/17 08:36 Hydrochlorothiazide (Microzide) 12.5 mg DAILY PO 10/28/17 09:00 10/31/17 08:36 Prednisone (Deltasone) 40 mg DAILY PO 10/28/17 09:00 10/31/17 08:36 Zolpidem Tartrate (Ambien) 10 mg HS PRN PO INSOMNIA 10/27/17 20:45 10/30/17 22:26 Famotidine (Pepcid) 20 mg DAILY PO 10/27/17 21:00 10/31/17 08:36 Enoxaparin Sodium (Lovenox Inj) 60 mg Q12H SQ 10/28/17 11:00 Future Hold 10/28/17 23:20 Senna/Docusate Sodium (Mckenna-Colace) 1 tab BID PO 10/28/17 21:00 10/31/17 08:36 Lactulose (Lactulose Liq) 30 ml DAILY PRN PO SEVERE CONSITIPATION 10/28/17 15:15 10/30/17 10:08 Enalaprilat (Vasotec Inj) 1.25 mg Q6H PRN IV PUSH SBP>160, DBP>90 10/30/17 09:00 10/31/17 01:35 Clonidine (Catapres) 0.1 mg Q6H PRN PO SBP>160, DBP>90 10/30/17 09:00 10/31/17 06:34 Objective Remarks GENERAL: Older male, resting in bed in no obvious distress. SKIN: Warm and dry. Massive hematoma to R shoulder that extends down R flank. No oozing from lines. HEAD: Normocephalic. Tenderness to L temporal area. EYES: No injection or drainage. NECK: Supple, trachea midline. CARDIOVASCULAR: +S1/S2. No murmur noted. RESPIRATORY: Clear anteriorly. Breathing unlabored. GASTROINTESTINAL: Abdomen soft, non-tender, nondistended. EXTREMITIES: No cyanosis, or edema. MUSCULOSKELETAL: Adequate muscle tone. NEUROLOGICAL: No obvious focal deficit. Awake, alert, and oriented x3 Assessment/Plan Assessment 67y/o male with antiphospholipid antibody syndrome, admitted with hematoma. h/o Antiphospholipid antibody syndrome. Deep venous thrombosis and pulmonary embolism in 2003. Multiple strokes in 2017. Plan 1. Pt noted to have drop in hemoglobin, platelet level 77k today. There is definitely concern about resuming anticoagulation with patient's drop in hemoglobin. However there is also a major risk of recurrent stroke with history of antiphospholipid syndrome. Check HIT panel for thrombocytopenia. 2. Transfuse 1 unit packed red blood cells today. 3. Resume Lovenox at 40 mg twice a day dosing. 4. Noted elevation in sedimentation rate. With patient's history of temporal arteritis will increase prednisone to 80 mg daily. Attending Statement 1: has headaches with pain over the left temporal artery and he and tell me he has active temporal arteritis. ESR 82. will increase prednisone to 80 mg po daily and would like to see headache disappear and fall in sed rate. 2: platelets have fallen. This is a common accompaniment of antiphospholipid antibody syndrome and is compelling for resuming Lovenox. Given the fall in the H/H will resume at 40 mg sub cut every 12 hours and can escalate. Repeat cbc plat in am. will transfuse one unit and also check HIT antibody screen. Very difficult case and risks discussed with patient and . Mariama Silvestre Oct 31, 2017 13:23 Chris Grande MD Oct 31, 2017 13:32
[2017-10-31] MEDS: ENOXAPARIN SODIUM 60 MG/0.6 ML SYRINGE SQ SCH (15:35)
--- NOTE | 2017-10-31 17:40 | HHI.PR ---
Subjective Remarks Complains of right arm weakness secondary to brachial plexus irritation and associated headache. He says he has a history of temporal arteritis. His bruising is evolved, but he has a history of antiphosopholipid antibody syndrome which places him at increased risk of stroke (he has had 8). Objective Vitals Vital Signs Date Time Temp Pulse Resp B/P (MAP) Pulse Ox O2 Delivery O2 Flow Rate FiO2 10/31/17 16:31 60 10/31/17 16:08 97.0 77 18 110/50 (70) 97 10/31/17 16:02 62 10/31/17 14:45 78 10/31/17 14:00 92 10/31/17 13:46 98 10/31/17 12:37 76 10/31/17 12:15 97.3 75 17 140/67 (91) 95 10/31/17 11:55 87 10/31/17 09:54 88 10/31/17 08:00 98.2 80 16 149/68 (95) 94 10/31/17 07:47 83 10/31/17 03:45 98.7 78 18 178/73 (108) 97 10/31/17 00:15 98.0 90 16 182/74 (110) 95 10/30/17 23:47 96 10/30/17 19:44 85 10/30/17 19:15 96.3 83 20 172/82 (112) 95 10/30/17 18:06 85 I/O 10/30/17 10/30/17 10/30/17 10/31/17 10/31/17 10/31/17 07:00 15:00 23:00 07:00 15:00 23:00 Intake Total 1395 ml 734 ml 1680 ml 2013 ml 409 ml Balance 1395 ml 734 ml 1680 ml 2013 ml 409 ml Intake Oral 480 ml 1680 ml 360 ml IV Total 915 ml 734 ml 1653 ml 409 ml # Voids 1 7 1 # Bowel Movements 1 Result Diagram: 10/31/1763210/31/1733 Objective Remarks GENERAL: Well-nourished, well-developed patient. SKIN: Warm and dry, large bruising and moderate swelling over right pectoralis and axilla area HEAD: Normocephalic. EYES: No scleral icterus. No injection or drainage. NECK: Supple, trachea midline. No JVD or lymphadenopathy. CARDIOVASCULAR: Regular rate and rhythm without murmurs, gallops, or rubs. RESPIRATORY: Breath sounds equal bilaterally. No accessory muscle use. GASTROINTESTINAL: Abdomen soft, non-tender, nondistended. MUSCULOSKELETAL: No cyanosis, or edema. BACK: Nontender without obvious deformity. No CVA tenderness. EXTREMITIES: moderate right upper arm swelling and brusing Procedures none A/P Problem List: (1) Hematoma ICD Code: T14.8XXA - Other injury of unspecified body region, initial encounter Status: Acute (2) Coagulopathy ICD Code: D68.9 - Coagulation defect, unspecified Status: Acute Assessment and Plan Large right chest hematoma Chronic hypercoagulopathy Antiphospholipid antibody syndrome History of pulmonary embolism Numerous histories of CVA Related to anticoagulation, patient needs chronic anticoagulation due to hypercoagulopathy Hematology recommends restarting Lovenox today. Appreciate consult. Will follow closely for any recurrence and discuss repeat CT imaging tomorrow with patient Symptomatic anemia Secondary to acute blood loss Stable at 8.1, but if dropping into the 7's will transfuse Headache w/ h/o Temporal Arteritis ESR and CRP both elevated, may be due to sub-pectoral bleeding, but given unexplained headache, treatment is indicated Appreciate Oncology addressing this Prednisone was increased to treatment dose of 80mg daily Will follow symptoms Hypertension Continue clonidine PRN Continue baseline treatment Follow blood pressures Peptic ulcer disease Continue Zantac DVT Prophylaxis Lovenox resumed Kale Garcia MD Oct 31, 2017 17:39
[2017-10-31] MEDS: ZOLPIDEM TARTRATE 10 MG TAB PO PRN (22:24)
[2017-11-01] MEDS: LACTULOSE SYRUP 20 GM/30 ML CUP PO PRN (00:58)
[2017-11-01] MEDS: ENOXAPARIN SODIUM 60 MG/0.6 ML SYRINGE SQ SCH ×2 (01:43→13:33)
[2017-11-01] MEDS: ACETAMINOPHEN/HYDROcodone 325 MG/5 MG TAB PO PRN ×4 (01:44→21:00)
[2017-11-01 02:20] VITALS: BP 140/72; PULSE 92; RESP 20; TEMP 98; O2SAT 99
[2017-11-01] MEDS: HYDROmorphone HCL PF 2 MG/ML VIAL IV PUSH PRN ×5 (02:31→22:34)
[2017-11-01 04:30] VITALS: BP 181/81; PULSE 91; RESP 18; TEMP 98.8; O2SAT 94
[2017-11-01] MEDS: cloNIDine HCL 0.1 MG TAB PO PRN (05:18)
[2017-11-01 07:57] VITALS: BP 190/88; PULSE 100; RESP 18; TEMP 98; O2SAT 95
[2017-11-01] MEDS: DOCUSATE SODIUM 50 MG/SENNA 8.6 MG TAB PO SCH ×2 (08:05→20:50)
[2017-11-01] MEDS: FAMOTIDINE 20 MG TAB PO SCH (08:05)
[2017-11-01] MEDS: predniSONE 20 MG TAB PO SCH (08:07)
[2017-11-01 08:58] LABS: AUTOMATED NEUTROPHIL # 7.1 TH/MM3 (1.8-7.7); BASOPHIL % 0.3 % (0.0-2.0); EOSINOPHIL % 0.5 % (0.0-4.0); HEMATOCRIT 27.2 % (39.0-51.0); HEMOGLOBIN 9.6 GM/DL (13.0-17.0); LYMPH % 16.2 % (9.0-44.0); LYMPHOCYTE # 1.6 TH/MM3 (1.0-4.8); MEAN CELL VOLUME 86.1 FL (80.0-100.0); MEAN CORPUSCULAR HEMOGLOBIN 30.3 PG (27.0-34.0); MEAN CORPUSCULAR HGB CONC 35.2 % (32.0-36.0); MEAN PLATELET VOLUME 7.2 FL (7.0-11.0); MONO % 10.1 % (0.0-8.0); NEUT % 72.9 % (16.0-70.0); PLATELET COUNT 65 TH/MM3 (150-450); RED BLOOD COUNT 3.16 MIL/MM3 (4.50-5.90); RED CELL DISTRIBUTION WIDTH 14.5 % (11.6-17.2); WHITE BLOOD COUNT 9.7 TH/MM3 (4.0-11.0)
[2017-11-01] MEDS: SODIUM CHLOR 0.9% 1000 ML INJ 1,000 ML IV SCH ×2 (09:00→19:00)
[2017-11-01] MEDS: HYDROCHLOROTHIAZIDE 12.5 MG CAP PO SCH (09:00)
[2017-11-01] MEDS: PANTOPRAZOLE SOD 40 MG DELAYED RELEASE TAB PO SCH (09:00)
[2017-11-01] MEDS ORDERED: predniSONE 20 MG TAB PO SCH (09:00)
[2017-11-01] MEDS: SODIUM CHLORIDE 0.9% FLUSH 10 ML FLUSH IV FLUSH SCH ×2 (09:00→20:50)
[2017-11-01 10:40] LABS: BANDS 11 % (0-6); CORRECTED NUCLEATED RBC 1 /100 WBC (0-0); LYMPHOCYTES 16 % (9-44); METAMYELOCYTES 1 % (0-1); MONOCYTES 3 % (0-8); MYELOCYTES 1 % (0-0); NEUTROPHIL # MANUAL DIFF 7.9 TH/MM3 (1.8-7.7); NUCLEATED RED BLOOD CELL 1 (0-0); POLYS (SEG NEUTROPHILS) 66 % (16-70); PROMYELOCYTES 2 % (0-0)
[2017-11-01 10:43] LABS: TOXIC GRANULATION 1+ (NORMAL)
--- NOTE | 2017-11-01 11:55 | PD.ONC.PN ---
Subjective Subjective Remarks Afebrile overnight. Patient states right shoulder feeling a bit improved. Less swelling today. Having low back pain which he states is chronic. Had some epigastric pain overnight. Objective Data Date Time Temp Pulse Resp B/P (MAP) Pulse Ox O2 Delivery O2 Flow Rate FiO2 11/01/17 07:57 98.0 100 18 190/88 (122) 95 11/01/17 04:30 98.8 91 18 181/81 (114) 94 11/01/17 02:20 98.0 92 20 140/72 99 10/31/17 23:50 90 10/31/17 22:25 97.7 84 20 142/78 99 10/31/17 22:20 96.7 83 17 158/76 98 10/31/17 22:15 97.5 82 18 160/72 98 10/31/17 19:45 97.3 76 18 154/71 (98) 97 10/31/17 18:40 83 10/31/17 16:31 60 10/31/17 16:08 97.0 77 18 110/50 (70) 97 10/31/17 16:02 62 10/31/17 14:45 78 10/31/17 14:00 92 10/31/17 13:46 98 10/31/17 12:37 76 10/31/17 12:15 97.3 75 17 140/67 (91) 95 10/31/17 11:55 87 11/01/17 11/01/17 11/01/17 07:00 15:00 23:00 Intake Total 845 ml Balance 845 ml Result Diagram: 11/01/17 0825 10/31/17 0633 Laboratory Results Laboratory Tests Test 10/31/17 12:15 10/31/17 16:39 11/01/17 08:25 Erythrocyte Sedimentation Rate 82 mm/hr C-Reactive Protein 7.34 MG/DL White Blood Count 9.7 TH/MM3 Red Blood Count 3.16 MIL/MM3 Hemoglobin 9.6 GM/DL Hematocrit 27.2 % Mean Corpuscular Volume 86.1 FL Mean Corpuscular Hemoglobin 30.3 PG Mean Corpuscular Hemoglobin Concent 35.2 % Red Cell Distribution Width 14.5 % Platelet Count 65 TH/MM3 Mean Platelet Volume 7.2 FL Neutrophils (%) (Auto) 72.9 % Lymphocytes (%) (Auto) 16.2 % Monocytes (%) (Auto) 10.1 % Eosinophils (%) (Auto) 0.5 % Basophils (%) (Auto) 0.3 % Neutrophils # (Auto) 7.1 TH/MM3 Lymphocytes # (Auto) 1.6 TH/MM3 Monocytes # (Auto) 1.0 TH/MM3 Eosinophils # (Auto) 0.0 TH/MM3 Basophils # (Auto) 0.0 TH/MM3 CBC Comment AUTO DIFF Differential Total Cells Counted 100 Neutrophils % (Manual) 66 % Band Neutrophils % 11 % Lymphocytes % 16 % Monocytes % 3 % Neutrophils # (Manual) 7.9 TH/MM3 Metamyelocytes 1 % Myelocytes 1 % Promyelocytes 2 % Nucleated Red Blood Cells 1 /100 WBC Differential Comment FINAL DIFF MANUAL Toxic Granulation 1+ Platelet Estimate LOW Platelet Morphology Comment NORMAL Polychromasia 2.0 % Administered Medications Medications (Trade) Dose Ordered Sig/Aayush Route PRN Reason Start Time Stop Time Status Last Admin Dose Admin Sodium Chloride (NS Flush) 2 ml UNSCH PRN IV FLUSH FLUSH AFTER USING IV ACCESS 10/27/17 16:45 10/31/17 06:25 Sodium Chloride (NS Flush) 2 ml BID IV FLUSH 10/27/17 21:00 10/29/17 00:52 Acetaminophen/ Hydrocodone Bitart ([place] 5-325 Mg) 1 tab Q4H PRN PO pain <5 10/27/17 17:00 11/01/17 08:06 Hydromorphone HCl (Dilaudid Pf Inj) 2 mg Q4H PRN IV PUSH pain >5 10/27/17 18:00 11/01/17 08:11 Sodium Chloride 1,000 ml @ 100 mls/hr Q10H IV 10/27/17 19:00 10/31/17 10:49 Amlodipine Besylate (Norvasc) 10 mg DAILY PO 10/28/17 09:00 11/01/17 08:05 Hydrochlorothiazide (Microzide) 12.5 mg DAILY PO 10/28/17 09:00 10/31/17 08:36 Zolpidem Tartrate (Ambien) 10 mg HS PRN PO INSOMNIA 10/27/17 20:45 10/31/17 22:24 Famotidine (Pepcid) 20 mg DAILY PO 10/27/17 21:00 Future Hold 11/01/17 08:05 Senna/Docusate Sodium (Mckenna-Colace) 1 tab BID PO 10/28/17 21:00 11/01/17 08:05 Sennosides (Senokot) 17.2 mg Q12H PRN PO Moderate constipation 10/28/17 15:15 11/01/17 00:58 Lactulose (Lactulose Liq) 30 ml DAILY PRN PO SEVERE CONSITIPATION 10/28/17 15:15 11/01/17 00:58 Enalaprilat (Vasotec Inj) 1.25 mg Q6H PRN IV PUSH SBP>160, DBP>90 10/30/17 09:00 10/31/17 01:35 Clonidine (Catapres) 0.1 mg Q6H PRN PO SBP>160, DBP>90 10/30/17 09:00 11/01/17 05:18 Enoxaparin Sodium (Lovenox Inj) 40 mg Q12H SQ 10/31/17 14:00 11/01/17 01:43 Prednisone (Deltasone) 80 mg DAILY PO 11/01/17 09:00 11/01/17 08:07 Acetaminophen (Tylenol) 650 mg Q4H PRN PO SEE LABEL COMMENTS 10/31/17 13:15 10/31/17 21:31 Diphenhydramine HCl (Benadryl) 25 mg Q4H PRN PO SEE LABEL COMMENTS 10/31/17 13:15 10/31/17 21:30 Objective Remarks GENERAL: Middle aged male, lying in bed, shaving with an electric razor. He appears comfortable in nad SKIN: Warm and dry. ecchymoses noted over right shoulder and a few extending beneath bilateral breasts. HEAD: Normocephalic. EYES: No injection or drainage. NECK: Supple, trachea midline. CARDIOVASCULAR: Regular rate and rhythm RESPIRATORY: Breath sounds equal bilaterally. No accessory muscle use. GASTROINTESTINAL: Abdomen soft, non-tender, nondistended. EXTREMITIES: No cyanosis. right shoulder with improved swelling and scattered ecchymoses NEUROLOGICAL: awake and alert. normal speech. no obvious focal deficit. BACK: spine is midline. no bruising Assessment/Plan Problem List: (1) Hemarthrosis, right shoulder ICD Codes: M25.011 - Hemarthrosis, right shoulder Plan: --monitor H/H --hematoma in the setting of h/o multiple strokes--patient with conflicting needs. History (brought forward from initial consult for continuity of care) first diagnosed with left lower extremity deep venous thrombosis in 2002. At that time he also had pulmonary embolism. He was started on Coumadin. He later was found to have antiphospholipid antibody syndrome. He was doing well but in early 2016 he had multiple strokes and TIA. His stated he had a total of about eight strokes. At that time he was taking Coumadin and reportedly therapeutic. He was then switched to Eliquis. Unfortunately, in June 2017 he had another stroke while on Eliquis. He was then switched over to Lovenox 120 mg subcutaneous injection twice a day. Around August he developed significant abdominal pain. He eventually had to be transferred from [place] to [facility] in [place]. At that time he was found to have a spontaneous retroperitoneal hematoma. According to his , the patient was maintained on Lovenox because of his history of multiple strokes. He recovered from that episode. He also had a Staph infection which possibly was caused by his left elbow infected cyst. He completed antibiotic last Wednesday. He went to see his Infectious Disease doctor in [place]. Due to his complicated history and all his family is in [place], he was advised to go back to [place]. The patient's stated that the patient started having right shoulder tenderness. By Wednesday night she started seeing purplish bruise on his right shoulder. They decided to leave and head up to [place] that night. When they got to the [facility] he started having more tenderness and increased warmth on the right shoulder. 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 CT scan showed a large hematoma in the subpectoral area. The patient was admitted. His anticoagulation was stopped. His last Lovenox injection was on the morning of October 27. (2) Thrombocytopenia ICD Codes: D69.6 - Thrombocytopenia, unspecified Plan: --?d/t APA syndrome vs. HIT vs DIC --on Lovenox 40mg SQ BID (3) Temporal arteritis ICD Codes: M31.6 - Other giant cell arteritis Plan: --on high dose prednisone, states his pain usually flares when he goes down to doses less than 50mg daily 11/01: patient states headache is much improved since prednisone was increased. Assessment 67y/o male with antiphospholipid antibody syndrome, admitted with hematoma. h/o Antiphospholipid antibody syndrome. Deep venous thrombosis and pulmonary embolism in 2003. Multiple strokes in 2017. Plan 1. repeat H/H this afternoon. 2. check coags 3. await HIT. 4. continue low dose Lovenox 5. start Protonix and Carafate for acid reflux Attending Statement The exam, history, and the medical decision-making described in the above note were completed with the assistance of the mid-level provider. I reviewed and agree with the findings presented. I attest that I had a [id number] encounter with the patient on the same day, and personally performed and documented my assessment and findings in the medical record. right shoulder pain slightly improved. Restarted lovenox 40mg BID yesterday. Had PRBC transfusion yesterday for declining HgB. Still has headache but improved. No evidence of recurrent CVA. Continue to monitor CBC. If Hgb is stable, then can titrate up lovenox. He is c/o LEIDA pain. Likely dyspepsia. Start PPI. Adore Qureshi Nov 01, 2017 11:55 Emmanuel Cohen MD Nov 01, 2017 16:53
[2017-11-01 12:00] VITALS: BP 158/75; PULSE 78; RESP 18; TEMP 96.2; O2SAT 96
[2017-11-01] MEDS: SUCRALFATE 1 GM/10 ML CUP PO SCH ×3 (12:00→20:49)
[2017-11-01 13:33] LABS: AUTOMATED NEUTROPHIL # 8.5 TH/MM3 (1.8-7.7); BASOPHIL % 0.3 % (0.0-2.0); EOSINOPHIL % 0.2 % (0.0-4.0); HEMATOCRIT 30.6 % (39.0-51.0); HEMOGLOBIN 10.5 GM/DL (13.0-17.0); LYMPH % 8.6 % (9.0-44.0); LYMPHOCYTE # 0.9 TH/MM3 (1.0-4.8); MEAN CELL VOLUME 87.1 FL (80.0-100.0); MEAN CORPUSCULAR HGB CONC 34.4 % (32.0-36.0); MEAN PLATELET VOLUME 8.1 FL (7.0-11.0); MONOCYTE # 0.6 TH/MM3 (0-0.9); NEUT % 84.9 % (16.0-70.0); PLATELET COUNT 73 TH/MM3 (150-450); RED BLOOD COUNT 3.52 MIL/MM3 (4.50-5.90); RED CELL DISTRIBUTION WIDTH 15.1 % (11.6-17.2)
[2017-11-01 13:48] LABS: ALBUMIN 2.9 GM/DL (3.4-5.0); ALT (GPT) 40 U/L (12-78); AST (GOT) 25 U/L (15-37); BICARBONATE 23.5 MEQ/L (21.0-32.0); BLOOD UREA NITROGEN 19 MG/DL (7-18); CALCIUM 8.5 MG/DL (8.5-10.1); CHLORIDE 102 MEQ/L (98-107); GLOMERULAR FILTRATION RATE 47 ML/MIN (>89); GLUCOSE,RANDOM 172 MG/DL (74-106); SODIUM (NA) 136 MEQ/L (136-145)
[2017-11-01 13:51] LABS: ALKALINE PHOSPHATASE 135 U/L (45-117); INTERNATIONAL NORMALIZED RATIO 1.1 RATIO; PROTHROMBIN TIME - PATIENT 11.3 SEC (9.8-11.6); TOTAL BILIRUBIN ADULT 0.6 MG/DL (0.2-1.0); TOTAL PROTEIN 6.7 GM/DL (6.4-8.2)
[2017-11-01 14:19] LABS: BANDS 7 % (0-6); LYMPHOCYTES 11 % (9-44); METAMYELOCYTES 2 % (0-1); MONOCYTES 1 % (0-8); MYELOCYTES 3 % (0-0); NEUTROPHIL # MANUAL DIFF 8.8 TH/MM3 (1.8-7.7); POLYS (SEG NEUTROPHILS) 76 % (16-70); TOXIC GRANULATION 2+ (NORMAL)
[2017-11-01 14:42] LABS: HEPARIN INDUCED PLATELET AB NEGATIVE (NEGATIVE)
[2017-11-01 16:00] VITALS: BP 151/67; PULSE 74; RESP 18; TEMP 97.1; O2SAT 95
--- NOTE | 2017-11-01 18:51 | HHI.PR ---
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 He has no new pain in his right pectoralis (site of hematoma). Objective Vitals Vital Signs Date Time Temp Pulse Resp B/P (MAP) Pulse Ox O2 Delivery O2 Flow Rate FiO2 11/01/17 16:00 97.1 74 18 151/67 (95) 95 11/01/17 12:00 96.2 78 18 158/75 (102) 96 11/01/17 07:57 98.0 100 18 190/88 (122) 95 11/01/17 04:30 98.8 91 18 181/81 (114) 94 11/01/17 02:20 98.0 92 20 140/72 99 10/31/17 23:50 90 10/31/17 22:25 97.7 84 20 142/78 99 10/31/17 22:20 96.7 83 17 158/76 98 10/31/17 22:15 97.5 82 18 160/72 98 10/31/17 19:45 97.3 76 18 154/71 (98) 97 I/O 10/31/17 10/31/17 10/31/17 11/01/17 11/01/17 11/01/17 07:00 15:00 23:00 07:00 15:00 23:00 Intake Total 2012 ml 409 ml 1450 ml 845 ml 720 ml 480 ml Balance 2012 ml 409 ml 1450 ml 845 ml 720 ml 480 ml Intake Oral 360 ml 1440 ml 480 ml 720 ml 480 ml IV Total 1653 ml 409 ml Packed Cells 350 ml Blood Product IV Normal Saline Flush 10 ml 15 ml # Voids 1 5 3 3 # Bowel Movements 1 3 3 Result Diagram: 11/01/17 1209 11/01/17 1209 Objective Remarks GENERAL: Well-nourished, well-developed patient. SKIN: Warm and dry, large bruising and moderate swelling over right pectoralis and axilla area HEAD: Normocephalic. EYES: No scleral icterus. No injection or drainage. NECK: Supple, trachea midline. No JVD or lymphadenopathy. CARDIOVASCULAR: Regular rate and rhythm without murmurs, gallops, or rubs. RESPIRATORY: Breath sounds equal bilaterally. No accessory muscle use. GASTROINTESTINAL: Abdomen soft, non-tender, nondistended. MUSCULOSKELETAL: No cyanosis, or edema. BACK: Nontender without obvious deformity. No CVA tenderness. EXTREMITIES: moderate right upper arm swelling and brusing Procedures none A/P Problem List: (1) Hematoma ICD Code: T14.8XXA - Other injury of unspecified body region, initial encounter Status: Acute (2) Coagulopathy ICD Code: D68.9 - Coagulation defect, unspecified Status: Acute Assessment and Plan Large right chest hematoma Chronic hypercoagulopathy Antiphospholipid antibody syndrome History of pulmonary embolism Numerous histories of CVA Related to anticoagulation, patient needs chronic anticoagulation due to hypercoagulopathy Tolerating Lovenox started yesterday Appreciate Oncology following Symptomatic anemia Secondary to acute blood loss, now stable Following Hgb Headache w/ h/o Temporal Arteritis ESR and CRP both elevated Prednisone 80mg daily Will follow symptoms Hypertension Continue clonidine PRN Continue home meds and monitor BP trend Peptic ulcer disease Continue Zantac DVT Prophylaxis Lovenox Kale Garcia MD Nov 01, 2017 18:51
[2017-11-01 20:00] VITALS: BP 190/90; PULSE 76; PULSE 85; RESP 16; TEMP 96.4; O2SAT 96
[2017-11-01] MEDS: ENALAPRILAT 1.25 MG/ML VIAL IV PUSH PRN (20:50)
[2017-11-01 22:02] LABS: AUTOMATED NEUTROPHIL # 8.7 TH/MM3 (1.8-7.7); BASOPHIL % 0.2 % (0.0-2.0); HEMATOCRIT 28.2 % (39.0-51.0); HEMOGLOBIN 9.8 GM/DL (13.0-17.0); LYMPH % 10.5 % (9.0-44.0); LYMPHOCYTE # 1.1 TH/MM3 (1.0-4.8); MEAN CELL VOLUME 86.1 FL (80.0-100.0); MEAN CORPUSCULAR HEMOGLOBIN 29.8 PG (27.0-34.0); MEAN CORPUSCULAR HGB CONC 34.6 % (32.0-36.0); MONO % 5.4 % (0.0-8.0); MONOCYTE # 0.6 TH/MM3 (0-0.9); NEUT % 83.9 % (16.0-70.0); PLATELET COUNT 75 TH/MM3 (150-450); RED BLOOD COUNT 3.28 MIL/MM3 (4.50-5.90); WHITE BLOOD COUNT 10.4 TH/MM3 (4.0-11.0)
[2017-11-01] MEDS: ZOLPIDEM TARTRATE 10 MG TAB PO PRN (22:34)
[2017-11-01 22:48] LABS: BANDS 11 % (0-6); LYMPHOCYTES 11 % (9-44); MONOCYTES 2 % (0-8); MYELOCYTES 4 % (0-0); POLYS (SEG NEUTROPHILS) 70 % (16-70); PROMYELOCYTES 2 % (0-0)
[2017-11-01 22:56] LABS: ACANTHOCYTES OCC (NORMAL); POLYCHROMASIA 2.2 % (0.0-1.9)
[2017-11-01 23:01] LABS: TOXIC GRANULATION 2+ (NORMAL)
[2017-11-02] VITALS: BP 180/78; PULSE 73; PULSE 89; RESP 16; TEMP 96.4; O2SAT 96
[2017-11-02] MEDS: ACETAMINOPHEN/HYDROcodone 325 MG/5 MG TAB PO PRN ×5 (00:45→18:26)
[2017-11-02 02:13] LABS: AUTOMATED NEUTROPHIL # 8.7 TH/MM3 (1.8-7.7); BASOPHIL % 0.3 % (0.0-2.0); EOSINOPHIL % 0.1 % (0.0-4.0); HEMOGLOBIN 9.5 GM/DL (13.0-17.0); LYMPH % 13.4 % (9.0-44.0); LYMPHOCYTE # 1.5 TH/MM3 (1.0-4.8); MEAN CELL VOLUME 85.6 FL (80.0-100.0); MEAN CORPUSCULAR HEMOGLOBIN 30.1 PG (27.0-34.0); MEAN CORPUSCULAR HGB CONC 35.2 % (32.0-36.0); MEAN PLATELET VOLUME 8.7 FL (7.0-11.0); MONO % 7.3 % (0.0-8.0); MONOCYTE # 0.8 TH/MM3 (0-0.9); NEUT % 78.9 % (16.0-70.0); PLATELET COUNT 79 TH/MM3 (150-450); RED BLOOD COUNT 3.16 MIL/MM3 (4.50-5.90); RED CELL DISTRIBUTION WIDTH 14.9 % (11.6-17.2)
[2017-11-02] MEDS: HYDROmorphone HCL PF 2 MG/ML VIAL IV PUSH PRN ×5 (02:24→21:06)
[2017-11-02] MEDS: ENOXAPARIN SODIUM 60 MG/0.6 ML SYRINGE SQ SCH ×2 (02:25→13:53)
[2017-11-02 04:00] VITALS: BP 179/77; PULSE 78; RESP 16; TEMP 96.2; O2SAT 95
[2017-11-02] MEDS: SODIUM CHLOR 0.9% 1000 ML INJ 1,000 ML IV SCH ×2 (04:38→15:00)
[2017-11-02] MEDS: SUCRALFATE 1 GM/10 ML CUP PO SCH ×4 (06:36→21:07)
[2017-11-02 08:00] VITALS: BP 165/86; PULSE 80; RESP 18; TEMP 97.9; O2SAT 97
[2017-11-02 08:20] LABS: BANDS 12 % (0-6); KERATOCYTES OCC (NORMAL); LYMPHOCYTES 13 % (9-44); METAMYELOCYTES 4 % (0-1); MONOCYTES 4 % (0-8); MYELOCYTES 2 % (0-0); NEUTROPHIL # MANUAL DIFF 9.1 TH/MM3 (1.8-7.7); POLYS (SEG NEUTROPHILS) 65 % (16-70)
[2017-11-02 08:21] LABS: TOXIC GRANULATION 2+ (NORMAL)
[2017-11-02] MEDS: DOCUSATE SODIUM 50 MG/SENNA 8.6 MG TAB PO SCH ×2 (09:25→21:07)
[2017-11-02] MEDS: SODIUM CHLORIDE 0.9% FLUSH 10 ML FLUSH IV FLUSH SCH ×2 (09:25→21:06)
[2017-11-02] MEDS: PANTOPRAZOLE SOD 40 MG DELAYED RELEASE TAB PO SCH (09:25)
[2017-11-02] MEDS: HYDROCHLOROTHIAZIDE 12.5 MG CAP PO SCH (09:25)
[2017-11-02] MEDS: predniSONE 20 MG TAB PO SCH (09:25)
[2017-11-02] MEDS ORDERED: ENOX60P SQ (10:49)
[2017-11-02 12:00] VITALS: BP 171/81; PULSE 82; RESP 18; TEMP 98.4; O2SAT 97
[2017-11-02] MEDS: cloNIDine HCL 0.1 MG TAB PO PRN ×2 (12:00→23:59)
--- NOTE | 2017-11-02 12:27 | PD.ONC.PN ---
Subjective Subjective Remarks Afebrile overnight. Patient resting in room. Shoulder continues to feel better. Still having mild low back pain. Hoping to drive back to [place] tomorrow if possible. Objective Data Date Time Temp Pulse Resp B/P (MAP) Pulse Ox O2 Delivery O2 Flow Rate FiO2 11/02/17 12:00 98.4 82 18 171/81 (111) 97 11/02/17 08:00 97.9 80 18 165/86 (112) 97 11/02/17 04:00 96.2 78 16 179/77 (111) 95 11/02/17 00:00 73 11/02/17 00:00 96.4 89 16 180/78 (112) 96 11/01/17 20:00 76 11/01/17 20:00 96.4 85 16 190/90 (123) 96 11/01/17 16:00 97.1 74 18 151/67 (95) 95 Result Diagram: 11/02/17 0130 11/01/17 1209 Laboratory Results Laboratory Tests Test 11/01/17 21:33 11/02/17 01:30 White Blood Count 10.4 TH/MM3 11.0 TH/MM3 Red Blood Count 3.28 MIL/MM3 3.16 MIL/MM3 Hemoglobin 9.8 GM/DL 9.5 GM/DL Hematocrit 28.2 % 27.0 % Mean Corpuscular Volume 86.1 FL 85.6 FL Mean Corpuscular Hemoglobin 29.8 PG 30.1 PG Mean Corpuscular Hemoglobin Concent 34.6 % 35.2 % Red Cell Distribution Width 15.0 % 14.9 % Platelet Count 75 TH/MM3 79 TH/MM3 Mean Platelet Volume 8.0 FL 8.7 FL Neutrophils (%) (Auto) 83.9 % 78.9 % Lymphocytes (%) (Auto) 10.5 % 13.4 % Monocytes (%) (Auto) 5.4 % 7.3 % Eosinophils (%) (Auto) 0.0 % 0.1 % Basophils (%) (Auto) 0.2 % 0.3 % Neutrophils # (Auto) 8.7 TH/MM3 8.7 TH/MM3 Lymphocytes # (Auto) 1.1 TH/MM3 1.5 TH/MM3 Monocytes # (Auto) 0.6 TH/MM3 0.8 TH/MM3 Eosinophils # (Auto) 0.0 TH/MM3 0.0 TH/MM3 Basophils # (Auto) 0.0 TH/MM3 0.0 TH/MM3 CBC Comment AUTO DIFF AUTO DIFF Differential Total Cells Counted 100 100 Neutrophils % (Manual) 70 % 65 % Band Neutrophils % 11 % 12 % Lymphocytes % 11 % 13 % Monocytes % 2 % 4 % Neutrophils # (Manual) 9.0 TH/MM3 9.1 TH/MM3 Myelocytes 4 % 2 % Promyelocytes 2 % Differential Comment FINAL DIFF MANUAL FINAL DIFF MANUAL Toxic Granulation 2+ 2+ Platelet Estimate LOW LOW Platelet Morphology Comment NORMAL NORMAL Polychromasia 2.2 % Acanthocytes OCC Red Cell Morphology Comment Metamyelocytes 4 % Keratocytes OCC Administered Medications Medications (Trade) Dose Ordered Sig/Aayush Route PRN Reason Start Time Stop Time Status Last Admin Dose Admin Sodium Chloride (NS Flush) 2 ml UNSCH PRN IV FLUSH FLUSH AFTER USING IV ACCESS 10/27/17 16:45 10/31/17 06:25 Sodium Chloride (NS Flush) 2 ml BID IV FLUSH 10/27/17 21:00 11/02/17 09:25 Acetaminophen/ Hydrocodone Bitart (Conyers 5-325 Mg) 1 tab Q4H PRN PO pain <5 10/27/17 17:00 11/02/17 09:29 Hydromorphone HCl (Dilaudid Pf Inj) 2 mg Q4H PRN IV PUSH pain >5 10/27/17 18:00 11/02/17 12:00 Sodium Chloride 1,000 ml @ 100 mls/hr Q10H IV 10/27/17 19:00 10/31/17 10:49 Amlodipine Besylate (Norvasc) 10 mg DAILY PO 10/28/17 09:00 11/02/17 09:25 Hydrochlorothiazide (Microzide) 12.5 mg DAILY PO 10/28/17 09:00 11/02/17 09:25 Zolpidem Tartrate (Ambien) 10 mg HS PRN PO INSOMNIA 10/27/17 20:45 11/01/17 22:34 Famotidine (Pepcid) 20 mg DAILY PO 10/27/17 21:00 Future Hold 11/01/17 08:05 Senna/Docusate Sodium (Mckenna-Colace) 1 tab BID PO 10/28/17 21:00 11/02/17 09:25 Sennosides (Senokot) 17.2 mg Q12H PRN PO Moderate constipation 10/28/17 15:15 11/01/17 00:58 Lactulose (Lactulose Liq) 30 ml DAILY PRN PO SEVERE CONSITIPATION 10/28/17 15:15 11/01/17 00:58 Enalaprilat (Vasotec Inj) 1.25 mg Q6H PRN IV PUSH SBP>160, DBP>90 10/30/17 09:00 11/01/17 20:50 Enoxaparin Sodium (Lovenox Inj) 40 mg Q12H SQ 10/31/17 14:00 11/02/17 02:25 Prednisone (Deltasone) 80 mg DAILY PO 11/01/17 09:00 11/02/17 09:25 Acetaminophen (Tylenol) 650 mg Q4H PRN PO SEE LABEL COMMENTS 10/31/17 13:15 10/31/17 21:31 Diphenhydramine HCl (Benadryl) 25 mg Q4H PRN PO SEE LABEL COMMENTS 10/31/17 13:15 10/31/17 21:30 Sucralfate (Carafate Liq) 1 gm ACHS PO 11/01/17 08:30 11/02/17 12:00 Pantoprazole Sodium (Protonix) 40 mg DAILY PO 11/01/17 09:00 11/02/17 09:25 Clonidine (Catapres) 0.1 mg Q6H PRN PO SYS BP GREATER THAN 165 MMHG 11/02/17 08:15 11/02/17 12:00 Objective Remarks GENERAL: Middle aged male, supine in bed, resting in nad. SKIN: Warm and dry. bruising over right shoulder. HEAD: Normocephalic. EYES: No injection or drainage. NECK: Supple, trachea midline. CARDIOVASCULAR: Regular rate and rhythm RESPIRATORY: Breath sounds equal bilaterally. No accessory muscle use. GASTROINTESTINAL: Abdomen soft, non-tender, nondistended. EXTREMITIES: No cyanosis. bruising and swelling noted over right shoulder. swelling improved. NEUROLOGICAL: awake and alert. moving extremities. no obvious focal deficit. Assessment/Plan Problem List: (1) Hemarthrosis, right shoulder ICD Codes: M25.011 - Hemarthrosis, right shoulder Plan: --monitor H/H --hematoma in the setting of h/o multiple strokes--patient with conflicting needs. History (brought forward from initial consult for continuity of care) first diagnosed with left lower extremity deep venous thrombosis in 2002. At that time he also had pulmonary embolism. He was started on Coumadin. He later was found to have antiphospholipid antibody syndrome. He was doing well but in early 2016 he had multiple strokes and TIA. His stated he had a total of about eight strokes. At that time he was taking Coumadin and reportedly therapeutic. He was then switched to Eliquis. Unfortunately, in June 2017 he had another stroke while on Eliquis. He was then switched over to Lovenox 120 mg subcutaneous injection twice a day. Around August he developed significant abdominal pain. He eventually had to be transferred from [place] to [facility] in [place]. At that time he was found to have a spontaneous retroperitoneal hematoma. According to his , the patient was maintained on Lovenox because of his history of multiple strokes. He recovered from that episode. He also had a Staph infection which possibly was caused by his left elbow infected cyst. He completed antibiotic last Wednesday. He went to see his Infectious Disease doctor in [place]. Due to his complicated history and all his family is in [place], he was advised to go back to [place]. The patient's stated that the patient started having right shoulder tenderness. By Wednesday night she started seeing purplish bruise on his right shoulder. They decided to leave and head up to [place] that night. When they got to the [facility] he started having more tenderness and increased warmth on the right shoulder. They called his monologist in [place] and were told to go to the nearest trauma center and he presented to the emergency room. CT scan showed a large hematoma in the subpectoral area. The patient was admitted. His anticoagulation was stopped. His last Lovenox injection was on the morning of October 27. (2) Thrombocytopenia ICD Codes: D69.6 - Thrombocytopenia, unspecified Plan: --?d/t APA syndrome vs. HIT vs DIC --on Lovenox 40mg SQ BID (3) Temporal arteritis ICD Codes: M31.6 - Other giant cell arteritis Plan: --on high dose prednisone Assessment 67y/o male with antiphospholipid antibody syndrome, admitted with hematoma. h/o Antiphospholipid antibody syndrome. Deep venous thrombosis and pulmonary embolism in 2003. Multiple strokes in 2017. Plan 1. continue Lovenox 40mg SQ q 12 hours. 2. monitor H/H. If remains stable tomorrow, could be discharged home. I have written a Rx for Lovenox 60mg SQ q12 for tomorrow they are to fill upon arrival to [place]. Will give last dose of Lovenox 40SQ before discharge tomorrow. Attending Statement The exam, history, and the medical decision-making described in the above note were completed with the assistance of the mid-level provider. I reviewed and agree with the findings presented. I attest that I had a [id number] encounter with the patient on the same day, and personally performed and documented my assessment and findings in the medical record. Right shoulder pain improving. Hgb stable. No obvious active bleeding at this time. Headache is better with increased prednisone. Will observe another day. If Hgb is stable tomorrow, can d/c. Plan to increase the lovenox to 60mg BID when he goes back to [place]. I told him to go see his monologist to check CBC on Wednesday. Extensive discussion with pt and his . Their questions were answered. Adore Qureshi Nov 02, 2017 12:27 Emmanuel Cohen MD Nov 02, 2017 16:59
[2017-11-02 16:00] VITALS: BP 130/60; PULSE 76; RESP 19; TEMP 96.4; O2SAT 97
[2017-11-02] MEDS ORDERED: LOSARTAN 25 MG TAB PO PRN (18:00)
--- NOTE | 2017-11-02 18:43 | HHI.PR ---
Subjective Remarks Patient is interested in going home, but blood pressure needs better control prior to discharge. So far Hgb remains stable. No new complaints. Objective Vitals Vital Signs Date Time Temp Pulse Resp B/P (MAP) Pulse Ox O2 Delivery O2 Flow Rate FiO2 11/02/17 16:00 96.4 76 19 130/60 (83) 97 11/02/17 12:00 98.4 82 18 171/81 (111) 97 11/02/17 08:00 97.9 80 18 165/86 (112) 97 11/02/17 04:00 96.2 78 16 179/77 (111) 95 11/02/17 00:00 73 11/02/17 00:00 96.4 89 16 180/78 (112) 96 11/01/17 20:00 76 11/01/17 20:00 96.4 85 16 190/90 (123) 96 I/O 11/01/17 11/01/17 11/01/17 11/02/17 11/02/17 11/02/17 07:00 15:00 23:00 07:00 15:00 23:00 Intake Total 845 ml 720 ml 480 ml 480 ml Balance 845 ml 720 ml 480 ml 480 ml Intake Oral 480 ml 720 ml 480 ml 480 ml Packed Cells 350 ml Blood Product IV Normal Saline Flush 15 ml # Voids 3 3 1 4 # Bowel Movements 3 3 0 Result Diagram: 11/02/17 0130 11/01/17 1209 Objective Remarks GENERAL: Well-nourished, well-developed patient. SKIN: Warm and dry, large bruising and moderate swelling over right pectoralis and axilla area HEAD: Normocephalic. EYES: No scleral icterus. No injection or drainage. NECK: Supple, trachea midline. No JVD or lymphadenopathy. CARDIOVASCULAR: Regular rate and rhythm without murmurs, gallops, or rubs. RESPIRATORY: Breath sounds equal bilaterally. No accessory muscle use. GASTROINTESTINAL: Abdomen soft, non-tender, nondistended. MUSCULOSKELETAL: No cyanosis, or edema. BACK: Nontender without obvious deformity. No CVA tenderness. EXTREMITIES: moderate right upper arm swelling and brusing Procedures none A/P Problem List: (1) Hematoma ICD Code: T14.8XXA - Other injury of unspecified body region, initial encounter Status: Acute (2) Coagulopathy ICD Code: D68.9 - Coagulation defect, unspecified Status: Acute Assessment and Plan Large right chest hematoma Chronic hypercoagulopathy Antiphospholipid antibody syndrome History of pulmonary embolism Numerous histories of CVA Related to anticoagulation, patient needs chronic anticoagulation due to hypercoagulopathy Tolerating Lovenox, Hgb is stable Appreciate Oncology following Symptomatic anemia Hgb has been stable following transfusion Headache w/ h/o Temporal Arteritis ESR and CRP both elevated Prednisone 80mg daily No further headaches following Prednisone adjustment Hypertension Continue clonidine PRN Losartan added with parameters to use if BP goes above 140 Peptic ulcer disease Continue Zantac DVT Prophylaxis Lovenox Discharge Planning Anticipate D/C tomorrow if BP controlled, patient is headache free, and Hgb remains stable Kale Garcia MD Nov 02, 2017 18:43
[2017-11-02 20:00] VITALS: BP 152/73; PULSE 60; RESP 20; TEMP 97.8; O2SAT 96
[2017-11-02] MEDS ORDERED: ACETAMINOPHEN/HYDROcodone 325 MG/5 MG TAB PO ONE (22:30)
[2017-11-02] MEDS: ZOLPIDEM TARTRATE 10 MG TAB PO PRN (22:35)
[2017-11-03] VITALS: BP 180/77; PULSE 82; RESP 20; TEMP 97.8; O2SAT 98
[2017-11-03] MEDS: SODIUM CHLOR 0.9% 1000 ML INJ 1,000 ML IV SCH (01:00)
[2017-11-03] MEDS: HYDROmorphone HCL PF 2 MG/ML VIAL IV PUSH PRN ×2 (01:08→06:06)
[2017-11-03] MEDS: ENOXAPARIN SODIUM 60 MG/0.6 ML SYRINGE SQ SCH ×2 (01:10→09:43)
[2017-11-03 04:00] VITALS: BP 172/88; PULSE 80; RESP 20; TEMP 97.7; O2SAT 96
[2017-11-03] MEDS: ENALAPRILAT 1.25 MG/ML VIAL IV PUSH PRN (06:14)
[2017-11-03 08:00] VITALS: BP 150/67; PULSE 76; RESP 17; TEMP 96.2; O2SAT 98
[2017-11-03] MEDS ORDERED: PANT40TA3 PO (08:13)
[2017-11-03] MEDS ORDERED: CLON.1 PO (08:13)
[2017-11-03] MEDS ORDERED: COZA25TA PO (08:13)
--- NOTE | 2017-11-03 08:19 | HHI.DS ---
Discharge Summary Admission Date Oct 27, 2017 at 17:57 Discharge Date: Nov 03, 2017 Admitting Diagnosis hematoma, coagulopathy, anemia (1) Hematoma ICD Code: T14.8XXA - Other injury of unspecified body region, initial encounter Status: Acute (2) Coagulopathy ICD Code: D68.9 - Coagulation defect, unspecified Status: Acute Procedures none Brief History - From Admission Hx from patient, ER MD, at the bedside and nursing staff from [facility] to [facility] and admitted there aug 15 admission - dc on or so [facility] that time, had back pain - hemorrhage was left retroperitoneal- no surgery had bacteremia with Staph dc on picc line was on antibiotics at home- finished 3 weeks ago - 3x a day dose, cefepime had another cx since then- but no results now still have increased abdominal pain and right shoulder pain and swelling and echymosis the pain now is also at front of the left lower quadrant, and not just left flank since , winded, slurred, cant even walk to bathroom limted rom on right arm was told to go to [place] but design cell engineer there told him to go to nearest trauma center 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 CBC/BMP: 11/02/17 0130 11/01/17 1209 Significant Findings Laboratory Tests Test 10/31/17 12:15 10/31/17 16:39 11/01/17 08:25 11/01/17 12:09 Erythrocyte Sedimentation Rate 82 mm/hr (0-20) C-Reactive Protein 7.34 MG/DL (0.00-0.30) Red Blood Count 3.16 MIL/MM3 (4.50-5.90) 3.52 MIL/MM3 (4.50-5.90) Hemoglobin 9.6 GM/DL (13.0-17.0) 10.5 GM/DL (13.0-17.0) Hematocrit 27.2 % (39.0-51.0) 30.6 % (39.0-51.0) Platelet Count 65 TH/MM3 (150-450) 73 TH/MM3 (150-450) Neutrophils (%) (Auto) 72.9 % (16.0-70.0) 84.9 % (16.0-70.0) Monocytes (%) (Auto) 10.1 % (0.0-8.0) Monocytes # (Auto) 1.0 TH/MM3 (0-0.9) Band Neutrophils % 11 % (0-6) 7 % (0-6) Neutrophils # (Manual) 7.9 TH/MM3 (1.8-7.7) 8.8 TH/MM3 (1.8-7.7) Myelocytes 1 % (0-0) 3 % (0-0) Promyelocytes 2 % (0-0) Nucleated Red Blood Cells 1 /100 WBC (0-0) Toxic Granulation 1+ (NORMAL) 2+ (NORMAL) Platelet Estimate LOW (NORMAL) LOW (NORMAL) Polychromasia 2.0 % (0.0-1.9) Lymphocytes (%) (Auto) 8.6 % (9.0-44.0) Neutrophils # (Auto) 8.5 TH/MM3 (1.8-7.7) Lymphocytes # (Auto) 0.9 TH/MM3 (1.0-4.8) Neutrophils % (Manual) 76 % (16-70) Metamyelocytes 2 % (0-1) Fibrinogen 592 mg/dL (227-377) Blood Urea Nitrogen 19 MG/DL (7-18) Creatinine 1.50 MG/DL (0.60-1.30) Random Glucose 172 MG/DL (74-106) Albumin 2.9 GM/DL (3.4-5.0) Alkaline Phosphatase 135 U/L (45-117) Estimat Glomerular Filtration Rate 47 ML/MIN (>89) Test 11/01/17 21:33 11/02/17 01:30 Red Blood Count 3.28 MIL/MM3 (4.50-5.90) 3.16 MIL/MM3 (4.50-5.90) Hemoglobin 9.8 GM/DL (13.0-17.0) 9.5 GM/DL (13.0-17.0) Hematocrit 28.2 % (39.0-51.0) 27.0 % (39.0-51.0) Platelet Count 75 TH/MM3 (150-450) 79 TH/MM3 (150-450) Neutrophils (%) (Auto) 83.9 % (16.0-70.0) 78.9 % (16.0-70.0) Neutrophils # (Auto) 8.7 TH/MM3 (1.8-7.7) 8.7 TH/MM3 (1.8-7.7) Band Neutrophils % 11 % (0-6) 12 % (0-6) Neutrophils # (Manual) 9.0 TH/MM3 (1.8-7.7) 9.1 TH/MM3 (1.8-7.7) Myelocytes 4 % (0-0) 2 % (0-0) Promyelocytes 2 % (0-0) Toxic Granulation 2+ (NORMAL) 2+ (NORMAL) Platelet Estimate LOW (NORMAL) LOW (NORMAL) Polychromasia 2.2 % (0.0-1.9) Metamyelocytes 4 % (0-1) PE at Discharge GENERAL: Well-nourished, well-developed patient. SKIN: Warm and dry, large bruising and moderate swelling over right pectoralis and axilla area HEAD: Normocephalic. EYES: No scleral icterus. No injection or drainage. NECK: Supple, trachea midline. No JVD or lymphadenopathy. CARDIOVASCULAR: Regular rate and rhythm without murmurs, gallops, or rubs. RESPIRATORY: Breath sounds equal bilaterally. No accessory muscle use. GASTROINTESTINAL: Abdomen soft, non-tender, nondistended. MUSCULOSKELETAL: No cyanosis, or edema. BACK: Nontender without obvious deformity. No CVA tenderness. EXTREMITIES: moderate right upper arm swelling and brusing Hospital Course 67M with h/o Still's Disease and Antiphospholipid Antibody Syndrome (8 strokes) presented to the ER with right subpectoral hematoma and anemia that required blood transfusions. He is from [place] and was on his way back to [place] to resume care with his specialists there. For the last 3 days his hemoglobin has remained stable, he started the Lovenox 3 days ago and has no new pain in his right pectoralis, overall that area is looking better and feeling better. He has a history of temporal arteritis and had a headache 4 days ago, was covered for temporal arteritis by prednisone 80mg daily and has had no significant headaches since then. He and his are eager to get home to the specialists, but cautious regarding timing. We discussed the pros and cons and feel that today is a good day to finish the remaining 8 hour journey home. If any worsening occurs he is instructed to go to the ER immediately. Pt Condition on Discharge: Good Discharge Disposition: Discharge Home Discharge Time: <= 30 minutes Discharge Instructions DIET: Follow Instructions for: Heart Healthy Diet Activities you can perform: See Additionl Instruction Other Activity Instructions: No heavy lifting, no reaching, avoid driving until bruising is further improved and headache is fully resolved. Kale Garcia MD Nov 03, 2017 08:18
[2017-11-03] MEDS: SODIUM CHLORIDE 0.9% FLUSH 10 ML FLUSH IV FLUSH SCH (09:00)
[2017-11-03] MEDS: predniSONE 20 MG TAB PO SCH (09:28)
[2017-11-03] MEDS: HYDROCHLOROTHIAZIDE 12.5 MG CAP PO SCH (09:28)
[2017-11-03] MEDS: DOCUSATE SODIUM 50 MG/SENNA 8.6 MG TAB PO SCH (09:28)
[2017-11-03] MEDS: SUCRALFATE 1 GM/10 ML CUP PO SCH (09:28)
[2017-11-03] MEDS: PANTOPRAZOLE SOD 40 MG DELAYED RELEASE TAB PO SCH (09:29)
[2017-11-03 09:31] LABS: HEMATOCRIT 28.9 % (39.0-51.0); HEMOGLOBIN 9.9 GM/DL (13.0-17.0); MEAN CELL VOLUME 87.2 FL (80.0-100.0); MEAN CORPUSCULAR HGB CONC 34.4 % (32.0-36.0); MEAN PLATELET VOLUME 7.8 FL (7.0-11.0); PLATELET COUNT 90 TH/MM3 (150-450); RED BLOOD COUNT 3.32 MIL/MM3 (4.50-5.90); RED CELL DISTRIBUTION WIDTH 15.2 % (11.6-17.2); WHITE BLOOD COUNT 10.5 TH/MM3 (4.0-11.0)
[2017-11-03] MEDS: ACETAMINOPHEN/HYDROcodone 325 MG/5 MG TAB PO PRN (09:31)
--- NOTE | 2017-11-03 10:17 | PD.ONC.PN ---
Subjective Subjective Remarks Right shoulder less tender. Headache improved. No CP/SOB. No LE edema Objective Data Date Time Temp Pulse Resp B/P (MAP) Pulse Ox O2 Delivery O2 Flow Rate FiO2 11/03/17 08:00 96.2 76 17 150/67 (94) 98 11/03/17 04:00 97.7 80 20 172/88 (116) 96 11/03/17 00:00 97.8 82 20 180/77 (111) 98 11/02/17 20:00 97.8 60 20 152/73 (99) 96 11/02/17 16:00 96.4 76 19 130/60 (83) 97 11/02/17 12:00 98.4 82 18 171/81 (111) 97 11/03/17 11/03/17 11/03/17 07:00 15:00 23:00 Intake Total 680 ml Balance 680 ml Result Diagram: 11/03/17 0857 11/01/17 1209 Laboratory Results Laboratory Tests Test 11/03/17 08:57 White Blood Count 10.5 TH/MM3 Red Blood Count 3.32 MIL/MM3 Hemoglobin 9.9 GM/DL Hematocrit 28.9 % Mean Corpuscular Volume 87.2 FL Mean Corpuscular Hemoglobin 30.0 PG Mean Corpuscular Hemoglobin Concent 34.4 % Red Cell Distribution Width 15.2 % Platelet Count 90 TH/MM3 Mean Platelet Volume 7.8 FL Administered Medications Medications (Trade) Dose Ordered Sig/Aayush Route PRN Reason Start Time Stop Time Status Last Admin Dose Admin Sodium Chloride (NS Flush) 2 ml UNSCH PRN IV FLUSH FLUSH AFTER USING IV ACCESS 10/27/17 16:45 10/31/17 06:25 Sodium Chloride (NS Flush) 2 ml BID IV FLUSH 10/27/17 21:00 11/02/17 21:06 Acetaminophen/ Hydrocodone Bitart ([place] 5-325 Mg) 1 tab Q4H PRN PO pain <5 10/27/17 17:00 11/03/17 09:31 Hydromorphone HCl (Dilaudid Pf Inj) 2 mg Q4H PRN IV PUSH pain >5 10/27/17 18:00 11/03/17 06:06 Sodium Chloride 1,000 ml @ 100 mls/hr Q10H IV 10/27/17 19:00 10/31/17 10:49 Amlodipine Besylate (Norvasc) 10 mg DAILY PO 10/28/17 09:00 11/03/17 09:28 Hydrochlorothiazide (Microzide) 12.5 mg DAILY PO 10/28/17 09:00 11/03/17 09:28 Zolpidem Tartrate (Ambien) 10 mg HS PRN PO INSOMNIA 10/27/17 20:45 11/02/17 22:35 Famotidine (Pepcid) 20 mg DAILY PO 10/27/17 21:00 Future Hold 11/01/17 08:05 Senna/Docusate Sodium (Mckenna-Colace) 1 tab BID PO 10/28/17 21:00 11/03/17 09:28 Sennosides (Senokot) 17.2 mg Q12H PRN PO Moderate constipation 10/28/17 15:15 11/01/17 00:58 Lactulose (Lactulose Liq) 30 ml DAILY PRN PO SEVERE CONSITIPATION 10/28/17 15:15 11/01/17 00:58 Enalaprilat (Vasotec Inj) 1.25 mg Q6H PRN IV PUSH SBP>160, DBP>90 10/30/17 09:00 11/03/17 06:14 Enoxaparin Sodium (Lovenox Inj) 40 mg Q12H SQ 10/31/17 14:00 11/03/17 09:43 Prednisone (Deltasone) 80 mg DAILY PO 11/01/17 09:00 11/03/17 09:28 Acetaminophen (Tylenol) 650 mg Q4H PRN PO SEE LABEL COMMENTS 10/31/17 13:15 10/31/17 21:31 Diphenhydramine HCl (Benadryl) 25 mg Q4H PRN PO SEE LABEL COMMENTS 10/31/17 13:15 10/31/17 21:30 Sucralfate (Carafate Liq) 1 gm ACHS PO 11/01/17 08:30 11/03/17 09:28 Pantoprazole Sodium (Protonix) 40 mg DAILY PO 11/01/17 09:00 11/03/17 09:29 Clonidine (Catapres) 0.1 mg Q6H PRN PO SYS BP GREATER THAN 165 MMHG 11/02/17 08:15 11/02/17 23:59 Objective Remarks GENERAL: Well-nourished, well-developed patient. SKIN: Warm and dry. Ecchymosis right shoulder right flank stable HEAD: Normocephalic. EYES: No scleral icterus. No injection or drainage. NECK: Supple, trachea midline. No JVD or lymphadenopathy. LYMPHATIC: No adenopathy. CARDIOVASCULAR: Regular rate and rhythm without murmurs. RESPIRATORY: Breath sounds equal bilaterally. No accessory muscle use. GASTROINTESTINAL: Abdomen soft, non-tender, nondistended. EXTREMITIES: No cyanosis, or edema. Right shoulder/chest less tender and softer MUSCULOSKELETAL: Adequate muscle tone. NEUROLOGICAL: No obvious focal deficit. Awake, alert, and oriented x3. PSYCHIATRIC: Appropriate mood and affect; insight and judgment normal. Assessment/Plan Problem List: (1) Hemarthrosis, right shoulder ICD Codes: M25.011 - Hemarthrosis, right shoulder Plan: --Hgb stable. No active bleed noted at this time --hematoma in the setting of h/o multiple strokes--patient with conflicting needs. History (brought forward from initial consult for continuity of care) first diagnosed with left lower extremity deep venous thrombosis in 2002. At that time he also had pulmonary embolism. He was started on Coumadin. He later was found to have antiphospholipid antibody syndrome. He was doing well but in early 2016 he had multiple strokes and TIA. His stated he had a total of about eight strokes. At that time he was taking Coumadin and reportedly therapeutic. He was then switched to Eliquis. Unfortunately, in June 2017 he had another stroke while on Eliquis. He was then switched over to Lovenox 120 mg subcutaneous injection twice a day. Around August he developed significant abdominal pain. He eventually had to be transferred from [place] to [facility] in [place]. At that time he was found to have a spontaneous retroperitoneal hematoma. According to his , the patient was maintained on Lovenox because of his history of multiple strokes. He recovered from that episode. He also had a Staph infection which possibly was caused by his left elbow infected cyst. He completed antibiotic last Wednesday. He went to see his Infectious Disease doctor in [place]. Due to his complicated history and all his family is in [place], he was advised to go back to [place]. The patient's stated that the patient started having right shoulder tenderness. By Wednesday she started seeing purplish bruise on his right shoulder. They decided to leave and head up to [place] that night. When they got to the [facility] he started having more tenderness and increased warmth on the right shoulder. They called his splitter head in [place] and were told to go to the nearest trauma center and he presented to the emergency room. CT scan showed a large hematoma in the subpectoral area. The patient was admitted. His anticoagulation was stopped. His last Lovenox injection was on the morning of October 27. (2) Thrombocytopenia ICD Codes: D69.6 - Thrombocytopenia, unspecified Plan: -- HIT negative. Likely consumptive process. Platelet trended up. --?d/t APA syndrome vs. HIT vs DIC --on Lovenox 40mg SQ BID (3) Temporal arteritis ICD Codes: M31.6 - Other giant cell arteritis Plan: --on high dose prednisone, Headache improved Assessment 67y/o male with antiphospholipid antibody syndrome, admitted with hematoma. h/o Antiphospholipid antibody syndrome. Deep venous thrombosis and pulmonary embolism in 2003. Multiple strokes in 2017. Plan 1. continue Lovenox 40mg SQ q 12 hours. 2. Pt can be d/c today. Give the dose of lovenox 40mg today before d/c. He will start Lovenox 60mg BID when he return to [place]. I tolf him to see his splitter head and check CBC on Wednesday. discussed with pt and his . Emmaneul Cohen MD Nov 03, 2017 10:17
== END 2017-11-03 10:52 | disposition home or self-care (01) | DRG 813 ==
LOC: NEPE 13:26 → NEDA 16:38 → OBSVTOIN 17:57 → NEPHCDU 18:35 → N06B 10-29 15:11 → N07B 11-01 15:06
PROVIDERS: ADMIT Family Medicine; ATTEND Family Medicine
PROC: 30233N1 Transfusion of Nonautologous Red Blood Cells into Peripheral Vein, Percutaneous Approach (ICD-10-PCS; principal; 2017-10-27)
DX: D68.32 Hemorrhagic disorder due to extrinsic circulating anticoagulants (principal); N17.9 Acute kidney failure, unspecified; D62 Acute posthemorrhagic anemia; D69.6 Thrombocytopenia, unspecified; M25.011 Hemarthrosis, right shoulder; G54.0 Brachial plexus disorders; M79.81 Nontraumatic hematoma of soft tissue; K21.9 Gastro-esophageal reflux disease without esophagitis; K27.9 Peptic ulcer, site unspecified, unspecified as acute or chronic, without hemorrhage or perforation; K59.00 Constipation, unspecified; I10 Essential (primary) hypertension; M08.20 Juvenile rheumatoid arthritis with systemic onset, unspecified site; G89.29 Other chronic pain; T45.515A Adverse effect of anticoagulants, initial encounter; M54.5 Low back pain; Z87.891 Personal history of nicotine dependence; Z86.711 Personal history of pulmonary embolism; Z86.73 Personal history of transient ischemic attack (TIA), and cerebral infarction without residual deficits; Z86.718 Personal history of other venous thrombosis and embolism
CPT/HCPCS: 36430; 70450; 71250; 74176; 76937; 80048; 80053; 81001; 82533; 82550; 82607; 82652; 82728; 83540; 83550; 83735; 84436; 84443; 84481; 84484; 85007; 85014; 85018; 85027; 85384; 85610; 85652; 85730; 86022; 86140; 86850; 86900; 86901; 86920; 87040; 93005; 93970; 94150; 99285; G8987-GP; G8988-GP; J1170; J1650; J2543; J3370; J7030; J7040; J7050; J7512; P9016